=== PATIENT | male | born 1975 | race Hispanic/Latino ===

== ENCOUNTER 2018-08-21 18:10 | Emergency (ER) | payer MEDICAID ==
[2018-08-21] MEDS: METOCLOPRAMIDE INJ 10MG/2ML VIAL (J2765) IV (20:25)
[2018-08-21] MEDS: KETOROLAC 30 MG/ML VIAL (J1885) IV (20:26)
[2018-08-21] MEDS: diphenhydrAMINE INJ 50MG/ML VIAL (J1200) IV (20:26)
[2018-08-21 20:33] LABS: BASO % 0.4 % (0.0-1.0); EOS # 0.4 10^3/uL (0.0-0.50); EOS % 3.6 % (0.0-3.0); HEMATOCRIT 40.3 % (42.0-52.0); HEMOGLOBIN 13.3 g/dl (13.5-17.5); IMMATURE GRANULOCYTE % 0.5 % (0-3.0); LYMPH # 2.3 10^3/uL (1.5-4.5); LYMPH % 22.5 % (24.0-44.0); MEAN CORPUSCULAR HEMOGLOBIN 29.4 pg (27.0-33.0); MONO # 0.8 10^3/uL (0.0-0.8); NEUTROPHILS # 6.7 10^3/uL (1.8-7.7); PLATELET COUNT, AUTOMATED 290 10^3/uL (150-450); RED BLOOD COUNT 4.53 10^6/uL (4.30-6.10); WHITE BLOOD COUNT 10.4 10^3/uL (4.0-10.0)
[2018-08-21 20:41] LABS: ANION GAP 8 MEQ/L (8-16); BLOOD UREA NITROGEN 15 MG/DL (7-18); CALCIUM LEVEL 8.4 MG/DL (8.5-10.1); CARBON DIOXIDE LEVEL 25 MEQ/L (21-32); CHLORIDE LEVEL 108 MEQ/L (98-107); CREATININE FOR GFR 1.01 MG/DL (0.70-1.30); GLOMERULAR FILTRATION RATE > 60.0 (>60); GLUCOSE, FASTING 86 MG/DL (70-100); MAGNESIUM LEVEL 2.1 MG/DL (1.8-2.4); POTASSIUM SERUM 4.3 MEQ/L (3.5-5.1); SODIUM LEVEL 141 MEQ/L (136-145)
[2018-08-21 21:10] LABS: ERYTHROCYTE SEDIMENTATION RATE 46 mm/hr (0-15)
[2018-08-21] MEDS ORDERED: ISOVUE-370 76% 100ML VIAL (Q9967) As Ordered (22:12)
[2018-08-22] MEDS: methylPREDNISolone INJ 125 MG/2 ML VIAL (J2930) IV (02:31)
== END 2018-08-22 02:46 | disposition home or self-care (01) ==
LOC: M ED 08-22 02:46
DX: R51 Headache (principal); H53.2 Diplopia; I10 Essential (primary) hypertension; M54.9 Dorsalgia, unspecified; Z86.69 Personal history of other diseases of the nervous system and sense organs; Z79.899 Other long term (current) drug therapy
CPT/HCPCS: J1200

== ENCOUNTER → 2019-05-19 | Outpatient (REF) | payer MEDICAID, OTHER ==
[~2019-05-19] MED LIST: IRBE150T14 PO; LISI-1046 PO; NAPR-837 PO; REGL10TA6 PO
[2019-05-19 18:35] LABS: ALBUMIN 3.5 GM/DL (3.2-5.2); ALT/SGPT 52 U/L (12-78); BILIRUBIN,TOTAL 0.7 MG/DL (0.2-1.0); BLOOD UREA NITROGEN 14 MG/DL (7-18); CALCIUM LEVEL 8.3 MG/DL (8.5-10.1); CARBON DIOXIDE LEVEL 27 MEQ/L (21-32); CHLORIDE LEVEL 105 MEQ/L (98-107); CHOLESTEROL LEVEL 221 MG/DL (<200); CHOLESTEROL RISK RATIO 4.804 (<5); CREATININE FOR GFR 1.01 MG/DL (0.70-1.30); FREE T4 1.05 NG/DL (0.76-1.46); GLOMERULAR FILTRATION RATE > 60.0 (>60); GLUCOSE, FASTING 102 MG/DL (70-100); HDL CHOLESTEROL 46 MG/DL (>40); LDL CHOLESTEROL 155 MG/DL (<100); NON-HDL-C 175 MG/DL; POTASSIUM SERUM 4.3 MEQ/L (3.5-5.1); SODIUM LEVEL 139 MEQ/L (136-145); TOTAL PROTEIN 7.3 GM/DL (6.4-8.2); TRIGLYCERIDES LEVEL 101 MG/DL (<150)
[2019-05-19 18:38] LABS: TOTAL 25(OH) VITAMIN D 19.6 NG/ML (30.0-100.0)
[2019-05-19 18:44] LABS: BASO % 0.7 % (0.0-1.0); EOS # 0.2 10^3/uL (0.0-0.50); EOS % 2.8 % (0.0-3.0); HEMATOCRIT 40.7 % (42.0-52.0); HEMOGLOBIN 12.8 g/dl (13.5-17.5); LYMPH # 1.4 10^3/uL (1.5-4.5); LYMPH % 23.9 % (24.0-44.0); MEAN CORPUSCULAR HEMOGLOBIN 28.4 pg (27.0-33.0); MEAN CORPUSCULAR HGB CONC 31.4 g/dl (32.0-36.5); MEAN CORPUSCULAR VOLUME 90.4 fl (80.0-96.0); MONO # 0.4 10^3/uL (0.0-0.8); MONO % 6.9 % (0.0-5.0); NEUTROPHILS # 3.9 10^3/uL (1.8-7.7); NEUTROPHILS % 65.4 % (36.0-66.0); PLATELET COUNT, AUTOMATED 321 10^3/uL (150-450)
[2019-05-19 20:10] LABS: HEMOGLOBIN A1c 6.5 %
[2019-05-22 00:07] LABS: Lyme Disease IgG/IgM Antibodie <0.91 ISR (0.00-0.90); Lyme Disease IgM Ab Quantitati <0.80 index (0.00-0.79)
== END ==
LOC: M LAB REF 16:21
PROVIDERS: ATTEND Family Medicine
DX: I10 Essential (primary) hypertension (principal); Z13.228 Encounter for screening for other metabolic disorders

== ENCOUNTER 2019-05-23 07:52 | Outpatient (RCR) | payer OTHER, MEDICAID | END 2019-05-25 | LOC: M PT 07:52 | PROVIDERS: ATTEND Physician Assistant | DX: M50.30 Other cervical disc degeneration, unspecified cervical region (principal); M75.42 Impingement syndrome of left shoulder ==

== ENCOUNTER 2019-06-05 07:54 | Outpatient (RCR) | payer MEDICAID, SELFPAY | END 2019-06-25 | LOC: M PT 07:54 | PROVIDERS: ATTEND Physician Assistant | DX: Z47.89 Encounter for other orthopedic aftercare (principal); M50.30 Other cervical disc degeneration, unspecified cervical region; M75.42 Impingement syndrome of left shoulder; M19.012 Primary osteoarthritis, left shoulder ==

== ENCOUNTER → 2020-05-20 | Outpatient (REF) | payer SELFPAY ==
[~2020-05-20] MED LIST changes: -LISI-1046 PO; +LISI2.5T2 PO
== END ==
LOC: M LAB REF 17:49
PROVIDERS: ATTEND Physician Assistant
DX: K92.1 Melena (principal); Z12.5 Encounter for screening for malignant neoplasm of prostate; E55.9 Vitamin D deficiency, unspecified; E11.9 Type 2 diabetes mellitus without complications; R35.0 Frequency of micturition; I10 Essential (primary) hypertension

== ENCOUNTER → 2020-05-25 | Outpatient (REF) | payer SELFPAY ==
[2020-05-25 17:23] LABS: BASO # 0.1 10^3/uL (0.0-0.2); BASO % 0.6 % (0.0-1.0); EOS # 0.2 10^3/uL (0.0-0.5); EOS % 2.8 % (0.0-3.0); HEMATOCRIT 48.2 % (42.0-52.0); HEMOGLOBIN 15.7 g/dl (13.5-17.5); LYMPH # 1.6 10^3/uL (1.5-5.0); LYMPH % 19.9 % (24.0-44.0); MEAN CORPUSCULAR HEMOGLOBIN 28.6 pg (27.0-33.0); MEAN CORPUSCULAR HGB CONC 32.6 g/dl (32.0-36.5); MONO # 0.5 10^3/uL (0.0-0.8); MONO % 6.3 % (0.0-5.0); NEUTROPHILS # 5.7 10^3/uL (1.5-8.5); NEUTROPHILS % 69.8 % (36.0-66.0); PLATELET COUNT, AUTOMATED 329 10^3/uL (150-450); RED BLOOD COUNT 5.48 10^6/uL (4.30-6.10); WHITE BLOOD COUNT 8.2 10^3/uL (4.0-10.0)
[2020-05-25 17:35] LABS: ALBUMIN 3.8 GM/DL (3.2-5.2); ALT/SGPT 56 U/L (12-78); BILIRUBIN,TOTAL 1.2 MG/DL (0.2-1.0); BLOOD UREA NITROGEN 12 MG/DL (7-18); CALCIUM LEVEL 9.2 MG/DL (8.5-10.1); CARBON DIOXIDE LEVEL 26 MEQ/L (21-32); CHLORIDE LEVEL 103 MEQ/L (98-107); CHOLESTEROL LEVEL 291 MG/DL (<200); CHOLESTEROL RISK RATIO 5.596 (<5); CREATININE FOR GFR 1.06 MG/DL (0.70-1.30); FERRITIN 41 NG/ML (26-388); FREE T4 1.12 NG/DL (0.76-1.46); GLOMERULAR FILTRATION RATE > 60.0 (>60); GLUCOSE, FASTING 116 MG/DL (70-100); HDL CHOLESTEROL 52 MG/DL (>40); IRON (FE) 107 UG/DL (65-175); LDL CHOLESTEROL 199 MG/DL (<100); NON-HDL-C 239 MG/DL; POTASSIUM SERUM 4.3 MEQ/L (3.5-5.1); SODIUM LEVEL 139 MEQ/L (136-145); TRIGLYCERIDES LEVEL 198 MG/DL (<150)
[2020-05-25 17:37] LABS: TOTAL 25(OH) VITAMIN D 17.2 NG/ML (30.0-100.0)
[2020-05-25 17:57] LABS: HEMOGLOBIN A1c 6.7 %
[2020-05-25 18:29] LABS: MAU/CREAT RATIO 144.3 MCG/MG (0.0-30.0)
== END ==
LOC: M LAB REF 16:17
PROVIDERS: ATTEND Physician Assistant
DX: Z12.5 Encounter for screening for malignant neoplasm of prostate (principal); E55.9 Vitamin D deficiency, unspecified; E11.9 Type 2 diabetes mellitus without complications; K92.1 Melena; R35.0 Frequency of micturition; I10 Essential (primary) hypertension

== ENCOUNTER → 2020-11-02 | Outpatient (REF) | payer OTHER ==
[2020-11-02 11:51] LABS: HEMATOCRIT 42.8 % (42.0-52.0); HEMOGLOBIN 13.7 g/dl (13.5-17.5); MEAN CORPUSCULAR HEMOGLOBIN 28.4 pg (27.0-33.0); MEAN CORPUSCULAR VOLUME 88.6 fl (80.0-96.0); PLATELET COUNT, AUTOMATED 300 10^3/uL (150-450); RED BLOOD COUNT 4.83 10^6/uL (4.30-6.10); WHITE BLOOD COUNT 7.8 10^3/uL (4.0-10.0)
[2020-11-02 12:17] LABS: ALBUMIN 3.9 GM/DL (3.2-5.2); ALT/SGPT 48 U/L (12-78); BLOOD UREA NITROGEN 17 MG/DL (7-18); CALCIUM LEVEL 8.9 MG/DL (8.5-10.1); CARBON DIOXIDE LEVEL 28 MEQ/L (21-32); CHLORIDE LEVEL 106 MEQ/L (98-107); CHOLESTEROL LEVEL 235 MG/DL (<200); CHOLESTEROL RISK RATIO 4.272 (<5); CREATININE FOR GFR 1.12 MG/DL (0.70-1.30); GLOMERULAR FILTRATION RATE > 60.0 (>60); GLUCOSE, FASTING 123 MG/DL (70-100); HDL CHOLESTEROL 55 MG/DL (>40); LDL CHOLESTEROL 156 MG/DL (<100); NON-HDL-C 180 MG/DL; POTASSIUM SERUM 4.1 MEQ/L (3.5-5.1); SODIUM LEVEL 138 MEQ/L (136-145); TOTAL PROTEIN 7.4 GM/DL (6.4-8.2); TRIGLYCERIDES LEVEL 122 MG/DL (<150)
[2020-11-02 12:23] LABS: TOTAL 25(OH) VITAMIN D 17.4 NG/ML (30.0-100.0)
[2020-11-02 12:25] LABS: MAU/CREAT RATIO 53.9 MCG/MG (0.0-30.0)
[2020-11-02 12:26] LABS: HEMOGLOBIN A1c 6.6 %
== END ==
LOC: M LAB REF 11:01
PROVIDERS: ATTEND Physician Assistant
DX: E11.9 Type 2 diabetes mellitus without complications (principal); E78.2 Mixed hyperlipidemia; D64.9 Anemia, unspecified

== ENCOUNTER 2020-11-13 16:56 | Emergency (ER) | payer OTHER ==
[~2020-11-13] VITALS: Ht 180.3 cm; Wt 130.4 kg
[2020-11-13] MEDS ORDERED: NS 1,000 ML IV ONE (18:15)
[2020-11-13] MEDS ORDERED: KETOROLAC 30 MG/ML 1ML VIAL IV ONE (18:15)
[2020-11-13 18:21] LABS: BASO % 0.2 % (0.0-1.0); EOS # 0.2 10^3/uL (0.0-0.5); EOS % 5.3 % (0.0-3.0); HEMATOCRIT 44.3 % (42.0-52.0); LYMPH # 1.4 10^3/uL (1.5-5.0); LYMPH % 32.5 % (24.0-44.0); MEAN CORPUSCULAR HEMOGLOBIN 28.1 pg (27.0-33.0); MEAN CORPUSCULAR HGB CONC 31.6 g/dl (32.0-36.5); MEAN CORPUSCULAR VOLUME 88.8 fl (80.0-96.0); MONO # 0.6 10^3/uL (0.0-0.8); MONO % 13.7 % (0.0-5.0); NEUTROPHILS % 47.8 % (36.0-66.0); PLATELET COUNT, AUTOMATED 259 10^3/uL (150-450); RED BLOOD COUNT 4.99 10^6/uL (4.30-6.10); WHITE BLOOD COUNT 4.2 10^3/uL (4.0-10.0)
[2020-11-13] MEDS ORDERED: LISI-542 PO (18:34)
[2020-11-13] MEDS ORDERED: AMLO1TAB25 (18:34)
[2020-11-13] MEDS ORDERED: SIMV20TA22 (18:34)
--- NOTE | 2020-11-13 18:39 | REP ---
INDICATION: DYSPNEA/COUGH COMPARISON: None. TECHNIQUE: Portable AP view of the chest FINDINGS: The mediastinum and cardiac silhouette are stable and within normal limits for portable technique. The lung barber are clear without acute consolidation, effusion, or pneumothorax. Skeletal structures are intact. IMPRESSION: No acute cardiopulmonary process appreciated. <Electronically signed by Ashish Villa > 11/13/20 [id number]
[2020-11-13 18:52] LABS: ALBUMIN 3.4 GM/DL (3.2-5.2); ALT/SGPT 47 U/L (12-78); BILIRUBIN,DIRECT 0.1 MG/DL (0.0-0.2); BILIRUBIN,TOTAL 0.5 MG/DL (0.2-1.0); BLOOD UREA NITROGEN 11 MG/DL (7-18); CARBON DIOXIDE LEVEL 29 MEQ/L (21-32); CHLORIDE LEVEL 104 MEQ/L (98-107); CK-MB VALUE MASS 4.5 NG/ML (<3.6); CPK CREATINE PHOSPHOKINASE 327 U/L (39-308); CREATININE FOR GFR 0.92 MG/DL (0.70-1.30); FERRITIN 88 NG/ML (26-388); GLOMERULAR FILTRATION RATE > 60.0 (>60); GLUCOSE, FASTING 94 MG/DL (70-100); LDH LACTATE DEHYDROGENASE 198 U/L (87-241); MB/CK RELATIVE INDEX 1.38 (< OR =4); POTASSIUM SERUM 3.8 MEQ/L (3.5-5.1); SODIUM LEVEL 140 MEQ/L (136-145); TOTAL PROTEIN 7.2 GM/DL (6.4-8.2); TROPONIN I < 0.02 NG/ML (< 0.10)
[2020-11-13] MEDS ORDERED: METHOCARBAMOL 1,000 MG/10 ML VIAL (J2800) IV ONE (19:15)
[2020-11-13 19:24] LABS: C REACTIVE PROTEIN QUANTITATIV 0.76 MG/DL (0.00-0.30)
[2020-11-13 21:32] VITALS: BP 166/99
[2020-11-13] MEDS ORDERED: ROBA750T4 PO (21:35)
== END 2020-11-13 22:03 | disposition home or self-care (01) ==
LOC: M ED 16:56
DX: U07.1 COVID-19 (principal); M54.5 Low back pain; I10 Essential (primary) hypertension; Z79.899 Other long term (current) drug therapy
CPT/HCPCS: 36415; 71045; 80048; 80076; 82550; 82553; 82728; 83605; 83615; 84443; 85025; 85379; 86140; 93041; 94760; 96361; 96374; 96375; 99285; J1885; J2800

== ENCOUNTER 2021-01-07 06:45 | Day surgery (SDC) | payer OTHER ==
[~2021-01-07] VITALS: Ht 180.3 cm; Wt 127.5 kg
[~2021-01-07 06:45] MED LIST changes: +AMLO1TAB25; +LISI-898 PO; +ROBA750T4 PO; +SIMV20TA22
--- OUTSIDE RECORDS SUMMARY | 2021-01-07 06:51 | CCD ---
Author Organization Unknown Address [address] [place] [address] Phone [phone] Care Team Providers Care Armored Car Messenger Name Role Phone Gualberto Davidson Unavailable Unavailable Allergies Code Code System Name Reaction Severity Status Onset 8210680 RxNorm Latex Active 03/17/2019 Medications Name Status Start Date Stop Date amlodipine 10 mg tablet Active Not avai lable amoxicillin 500 mg capsule TAKE 1 CAPSULE BY MOUTH EVERY 8 HOURS UNTIL GONE Active Not available lisinopril 5 mg tablet TAKE 1 TABLET BY MOUTH ONCE DAILY Active Not a vailable OneTouch Delica Plus Lancet 33 gauge Active Not available OneTouch Verio Meter Active Not availab le OneTouch Verio test strips Active Not a vailable simvastatin 20 mg tablet TAKE 1 TABLET BY MOUTH ONCE DAILY Active Not a vailable Problems Name Status Onset Date Source Hypertensive Disorder Active 03/17/2019 History Endocrine/metabolic Screening Active 03/17/2019 Hi story Finding of Neck Region Active 04/15/2019 History Pain of Left Shoulder Joint Active 04/15/2019 Hist ory Type 2 Diabetes Mellitus without Complication Active History Vitamin D Deficiency Active 05/20/2020 History Anemia Active 05/20/2020 History Melena Active 05/20/2020 History Increased Frequency of Urination Active 05/20/2020 History Screening for Malignant Neoplasm of Prostate Active History Procedure by Method Active 05/20/2020 History Mixed Hyperlipidemia Active 05/26/2020 History Simple Obesity Active 05/26/2020 History Body Mass Index 30+ - Obesity Active 05/26/2020 Hi story Patient Asked to Attend Active 05/26/2020 History Dental Caries on Smooth Surface Penetrating into Pulp Active 06/04/2020 History Procedures Notes: Double Hernia Surgery at age 5 or 6 Results Lab Results None recorded. Past Encounters 11/02/2020 Anemia; Mixed Hyperlipidemia; Type 2 Diabetes Mellitus without Complication; Vitamin D Deficiency Renae Andersen, [employer] [employer]-[facility]: [address] [place] [address], Ph. Social History None recorded. Vaccine List None recorded. Plan of Care Reminders Provider Appointments None recorded. Lab None recorded. Referral None recorded. Procedures None recorded. Surgeries None recorded. Imaging None recorded. Vitals 06/01/2020 Height Weight Blood Pressure 70 in 281 lbs 12.8 oz 132/85 mm[Hg] 05/26/2020 Height Weight Blood Pressure 70 in 275 lbs 130/102 mm[Hg] 05/20/2020 Height Weight Blood Pressure 70 in 279 lbs 9.6 oz (1) 171/109 mm[Hg] (2) 166/109 mm[Hg] (3) 164/109 mm[Hg] 04/15/2019 Height Weight Blood Pressure 70 in 282 lbs 123/82 mm[Hg] 03/17/2019 Height Weight Blood Pressure 70 in 292 lbs 2.08 oz (1) 145/98 mm[Hg] (2) 152/98 mm[Hg]
--- OUTSIDE RECORDS SUMMARY | 2021-01-07 06:51 | CCD ---
Author Organization Unknown Address [address] [place] [address] Phone [phone] Care Team Providers Care Clinical Support Specialist Name Role Phone Gualberto Davidson Unavailable Unavailable Allergies Code Code System Name Reaction Severity Status Onset 7500537 RxNorm Latex Active 03/17/2019 Medications Name Status Start Date Stop Date amlodipine 10 mg tablet TAKE 1 TABLET BY MOUTH ONCE DAILY Active Not a vailable amoxicillin 500 mg capsule TAKE 1 CAPSULE BY MOUTH EVERY 8 HOURS UNTIL GONE Completed 11/09/2020 cholecalciferol (vitamin D3) 50 mcg (2,0 00 unit) capsule TAKE 1 CAPSULE BY MOUTH ONCE DAILY Active Not available d3 50 mcg (2000 ut) caps Active Not av ailable hydrochlorothiazide 12.5 mg tablet Take 1 tablet every day by oral route. Active Not available lisinopril 5 mg tablet TAKE 1 TABLET BY MOUTH ONCE DAILY Active Not a vailable methocarbamol 750 mg tablet TAKE 1 TABLET BY MOUTH THREE TIMES DAILY Active Not available OneTouch Delica Plus Lancet 33 gauge Active Not available OneTouch Verio Meter Active Not availab le OneTouch Verio test strips Active Not a vailable peg-electrolyte solution 420 gram oral s olution DRINK THE LIQUID PER THE PRE PROCEDURE INSTRUCTIONS Active Not available [employer] COVID-19 Vaccine (PF) 30 mcg/0.3 mL IM suspension(EUA) ADMINISTER 0.3ML IN THE MUSCLE DIRECTED Active Not available simvastatin 20 mg tablet TAKE 1 TABLET BY MOUTH ONCE DAILY Active Not a vailable Problems Name Status Onset Date Source Hypertensive Disorder Active 03/17/2019 History Endocrine/metabolic Screening Unknown 03/17/2019 Hi story Finding of Neck Region Active 04/15/2019 History Pain of Left Shoulder Joint Active 04/15/2019 Hist ory Type 2 Diabetes Mellitus without Complication Active History Vitamin D Deficiency Active 05/20/2020 History Anemia Active 05/20/2020 History Melena Unknown 05/20/2020 History Increased Frequency of Urination Unknown 05/20/2020 History Screening for Malignant Neoplasm of Prostate Active History Procedure by Method Active 05/20/2020 History Clinical Finding Active 05/20/2020 History Mixed Hyperlipidemia Active 05/26/2020 History Simple Obesity Active 05/26/2020 History Body Mass Index 30+ - Obesity Active 05/26/2020 Hi story Patient Asked to Attend Active 05/26/2020 History Dental Caries on Smooth Surface Penetrating into Pulp Active 06/04/2020 History Venous Varices Active 08/03/2020 History Melena Active 11/09/2020 Procedures Notes: Double Hernia Surgery at age 5 or 6 Results Lab Results Date Name Specimen Result Interpretation Description Value Range Status Address 11/02/2020 Cbc Blood venous Normal White Blood Count 7.8 10 4.0-10.0 10 [facility]: [address] [place] [address] Blood venous Normal Red Blood Count 4.83 10 4.30- 6.10 10 [facility]: [address] [place] [address] Blood venous Normal Hemoglobin 13.7 g/dL 13.5-17. 5 g/dL [facility]: [address] [place] [address] Blood venous Normal Hematocrit 42.8 % 42.0-52.0 % [facility]: [address] [place] [address] Blood venous Normal Mean Corpuscular Volume 88.6 fL 80.0-96.0 fL [facility]: [address] [place] [address] Blood venous Normal Mean Corpuscular Hemoglob in 28.4 pg 27.0-33.0 pg [facility]: [address] [place] [address] Blood venous Normal Mean Corpuscular HGB Conc 32.0 g/dL 32.0-36.5 g/dL [facility]: [address] [place] [address] Blood venous Normal Red Cell Distribution Wid th 13.1 % 11.5-14.5 % [facility]: [address] [place] [address] Blood venous Normal Platelet Count, Automated 300 10 150-450 10 [facility]: [address] [place] [address] Blood venous Normal Nucleated Red Blood Cell % 0. 0 % 0-0 % [facility]: [address] [place] [address] 11/02/2020 CMP, Serum or Plasma Blood venous High Glu cose, Fasting 123 mg/dL 70-100 mg/dL [facility] nter: [address] [facility] Blood venous Normal Blood Urea Nitrogen 17 mg/dL 7-18 mg/dL [facility]: [address] [place] [address] Blood venous Normal Creatinine for GFR 1.12 mg/dL 0.70-1.30 mg/dL [facility]: [address] [place] [address] Blood venous Normal Glomerular Filtration Rate > 60.0 >60 [facility]: [address] [facility] Blood venous Normal Sodium Level 138 mEq/L 136-14 5 mEq/L [facility]: [address] [place] [address] Blood venous Normal Potassium Serum 4.1 mEq/L 3.5 -5.1 mEq/L [facility]: [address] [place] [address] Blood venous Normal Chloride Level 106 mEq/L 98-1 07 mEq/L [facility]: [address] [place] [address] Blood venous Normal Carbon Dioxide Level 28 mEq/L 21-32 mEq/L [facility]: [address] [facility] Blood venous Low Anion Gap 4 mEq/L 8-16 mEq/L [facility]: [address] [facility] Blood venous Normal Calcium Level 8.9 mg/dL 8.5-1 0.1 mg/dL [facility]: [address] [facility] Blood venous Normal AST/SGOT 20 U/L 7-37 U/L [facility]: [address] [facility] Blood venous Normal ALT/SGPT 48 U/L 12-78 U/L [facility]: [address] [facility] Blood venous Normal Alkaline Phosphatase 78 U/L 4 5-117 U/L [facility]: [address] [facility] Blood venous Normal Bilirubin,total 1.0 mg/dL 0.2 -1.0 mg/dL [facility]: [address] [facility] Blood venous Normal Total Protein 7.4 gm/dL 6.4-8 .2 gm/dL [facility]: [address] [place] [address] Blood venous Normal Albumin 3.9 gm/dL 3.2-5.2 gm/ dL [facility]: [address] [place] [address] Blood venous Normal Albumin/globulin Ratio 1.1 [facility]: [address] [place] [address] 11/02/2020 Lipid Panel, Blood Blood venous Normal Trigl ycerides Level 122 mg/dL <150 mg/dL [facility] nter: [address] [place] [address] Blood venous High Cholesterol Level 235 mg/dL < 200 mg/dL [facility]: [address] [place] [address] Blood venous Normal HDL Cholesterol 55 mg/dL >40 mg/dL [facility]: [address] [place] [address] Blood venous High LDL Cholesterol 156 mg/dL <10 0 mg/dL [facility]: [address] [place] [address] Blood venous Normal Non-hdl-c 180 mg/dL [facility]: [address] [place] [address] Blood venous Normal Cholesterol Risk Ratio 4.272 <5 [facility]: [address] [place] [address] 11/02/2020 Vitamin D, 25-Hydroxy, Total, Serum Low Total 25(Oh) Vitamin D 17.4 NG/mL 30.0-100.0 NG/mL [facility] nter: [address] [place] [address] 11/02/2020 Microalbumin, Urine Urine Normal Creatinine, Urin e 215.0 mg/dL [facility]: [address] [place] [address] Urine Normal Malb Urine Siemens 116.0 mg/L [facility]: [address] [place] [address] Urine High Daryl/creat Ratio 53.9 mcg/mg 0.0-30.0 mcg/mg [facility]: [address] [place] [address] 11/02/2020 HbA1C (Hemoglobin a1C), Blood Normal Hemogl obin a1C 6.6 % [facility]: [address] [place] [address] High Estimated Average Glucose 143 mg/dL 60-110 mg/dL [facility]: [address] [place] [address] Past Encounters 01/05/2021 Hypertensive Disorder; Obstructive Sleep Apnea of Adult; Type 2 Diabetes Mellitus without Complication; Edema of Lower Leg Arcadio Adair MD: [address] [facility] [address], [place] [address], Ph. 11/09/2020 Type 2 Diabetes Mellitus without Complication; Mixed Hyperlipidemia; Hypertensive Disorder; Vitamin D Deficiency; Melba Gualberto Davidson, [facility]-C: [address] [facility] [address], [place] [address], Ph. 11/02/2020 Anemia; Mixed Hyperlipidemia; Type 2 Diabetes Mellitus without Complication; Vitamin D Deficiency Renae Andersen [facility]: [address] [place] [address], Ph. Social History Tobacco Smoking Status Never Smoker Vaccine List None recorded. Plan of Care Reminders Provider Appointments None recorded. Lab None recorded. Referral None recorded. Procedures None recorded. Surgeries None recorded. Imaging None recorded. Vitals 01/05/2021 08:40AM ESTABLISHED [id number] Height Weight BMI Blood Pressure 70 in 287 lbs 16 oz 41.3 kg/m2 135/86 mm[Hg] 11/09/2020 08:50AM TELEHEALTH 20 Height 70 in 08/03/2020 Height Weight BMI Blood Pressure 70 in 277 lbs 6.4 oz 39.95 kg/m2 130/88 mm[Hg ] 06/01/2020 Height Weight BMI Blood Pressure 70 in 281 lbs 12.8 oz 40.58 kg/m2 132/85 mm[H g] 05/26/2020 Height Weight BMI Blood Pressure 70 in 275 lbs 39.60 kg/m2 130/102 mm[Hg] 05/20/2020 Height Weight BMI Blood Pressure 70 in 279 lbs 9.6 oz 40.26 kg/m2 (1) 171/109 mm[Hg] (2) 166/109 mm[Hg] (3) 164/109 mm[Hg] 04/15/2019 Height Weight BMI Blood Pressure 70 in 282 lbs 40.61 kg/m2 123/82 mm[Hg] 03/17/2019 Height Weight BMI Blood Pressure 70 in 292 lbs 2.08 oz 42.07 kg/m2 (1) 145/98 mm[Hg] (2) 152/98 mm[Hg]
--- OUTSIDE RECORDS SUMMARY | 2021-01-07 06:51 | CCD ---
Author Organization Unknown Address [address] [place] [address] Phone [phone] Care Team Providers Care [employer] Name Role Phone Gualberto Davidson Unavailable Unavailable Allergies Code Code System Name Reaction Severity Status Onset 0610248 RxNorm Latex Active 03/17/2019 Medications Name Status Start Date Stop Date amlodipine 10 mg tablet Active Not avai lable amoxicillin 500 mg capsule TAKE 1 CAPSULE BY MOUTH EVERY 8 HOURS UNTIL GONE Completed 11/09/2020 lisinopril 5 mg tablet TAKE 1 TABLET BY MOUTH ONCE DAILY Active Not a vailable OneTouch Delica Plus Lancet 33 gauge Active Not available OneTouch Verio Meter Active Not availab le OneTouch Verio test strips Active Not a vailable simvastatin 20 mg tablet TAKE 1 TABLET BY MOUTH ONCE DAILY Active Not a vailable Vitamin D3 50 mcg (2,000 unit) capsule Take 1 capsule every day by oral route. Active Not available Problems Name Status Onset Date Source Hypertensive [...] Surface Penetrating into Pulp Active 06/04/2020 History Melena Active 11/09/2020 Procedures Notes: Double Hernia Surgery at age 5 or 6 Results Lab Results Date Name Specimen Result Interpretation Description Value Range Status Address 11/02/2020 Cbc Blood venous Normal White Blood Count 7.8 10 4.0-10.0 10 [facility]: [address] [place] [address] Blood venous Normal Red Blood Count 4.83 10 4.30- 6.10 10 [facility]: [address] [place] [address] Blood venous Normal Hemoglobin 13.7 g/dL 13.5-17. 5 g/dL [facility]: [address] [place] [address] Blood venous Normal Hematocrit 42.8 % 42.0-52.0 % [facility]: [address] [place] [address] Blood venous Normal Mean Corpuscular Volume 88.6 fL 80.0-96.0 fL [facility]: [address] [place] [address] Blood venous Normal Mean Corpuscular Hemoglob in 28.4 pg 27.0-33.0 pg [facility]: [address] [place] [address] Blood venous Normal Mean Corpuscular HGB Conc 32.0 g/dL 32.0-36.5 g/dL [facility]: [address] [place] [address] Blood venous Normal Red Cell Distribution Wid th 13.1 % 11.5-14.5 % [facility]: [address] [place] [address] Blood venous Normal Platelet Count, Automated 300 10 150-450 10 [facility]: [address] [place] [address] Blood venous Normal Nucleated Red Blood Cell % 0. 0 % 0-0 % [facility]: [address] [place] [address] 11/02/2020 CMP, Serum or Plasma Blood venous High Glu cose, Fasting 123 mg/dL 70-100 mg/dL [facility] nter: [address] [place] [address] Blood venous Normal Blood Urea Nitrogen 17 mg/dL 7-18 mg/dL [facility]: [address] [place] [address] Blood venous Normal Creatinine for GFR 1.12 mg/dL 0.70-1.30 mg/dL [facility]: [address] [place] [address] Blood venous Normal Glomerular Filtration Rate > 60.0 >60 [facility]: [address] [place] [address] Blood venous Normal Sodium Level 138 mEq/L 136-14 5 mEq/L [facility]: [address] [facility] Blood venous Normal Potassium Serum 4.1 mEq/L 3.5 -5.1 mEq/L [facility]: [address] [facility] Blood venous Normal Chloride Level 106 mEq/L 98-1 07 mEq/L [facility]: [address] [facility] Blood venous Normal Carbon Dioxide Level 28 mEq/L 21-32 mEq/L [facility]: [address] [facility] Blood venous Low Anion Gap 4 mEq/L 8-16 mEq/L [facility]: [address] [facility] Blood venous Normal Calcium Level 8.9 mg/dL 8.5-1 0.1 mg/dL [facility]: [address] [facility] Blood venous Normal AST/SGOT 20 U/L 7-37 U/L [facility]: [address] [place] [address] Blood venous Normal ALT/SGPT 48 U/L 12-78 U/L [facility]: [address] [facility] Blood venous Normal Alkaline Phosphatase 78 U/L 4 5-117 U/L [facility]: 0 [facility] Blood venous Normal Bilirubin,total 1.0 mg/dL 0.2 -1.0 mg/dL [facility]: [address] [place] [address] Blood venous Normal Total Protein 7.4 gm/dL 6.4-8 .2 gm/dL [facility]: [address] [place] [address] Blood venous Normal Albumin 3.9 gm/dL 3.2-5.2 gm/ dL [facility]: [address] [place] [address] Blood venous Normal Albumin/globulin Ratio 1.1 [facility]: [address] [place] [address] 11/02/2020 Lipid Panel, Blood Blood venous Normal Trigl ycerides Level 122 mg/dL <150 mg/dL [facility] nter: [address] [facility] Blood venous High Cholesterol Level 235 mg/dL < 200 mg/dL [facility]: [address] [place] [address] Blood venous Normal HDL Cholesterol 55 mg/dL >40 mg/dL [facility]: [address] [place] [address] Blood venous High LDL Cholesterol 156 mg/dL <10 0 mg/dL [facility]: [address] [place] [address] Blood venous Normal Non-hdl-c 180 mg/dL [facility]: [address] [facility] Blood venous Normal Cholesterol Risk Ratio 4.272 <5 [facility]: [address] [place] [address] 11/02/2020 Vitamin D, 25-Hydroxy, Total, Serum Low Total 25(Oh) Vitamin D 17.4 NG/mL 30.0-100.0 NG/mL [facility] nter: [address] [place] [address] 11/02/2020 Microalbumin, Urine Urine Normal Creatinine, Urin e 215.0 mg/dL [facility]: [address] [place] [address] Urine Normal Malb Urine Siemens 116.0 mg/L [facility]: [address] [place] [address] Urine High Daryl/creat Ratio 53.9 mcg/mg 0.0-30.0 mcg/mg [facility]: [address] [place] [address] 11/02/2020 HbA1C (Hemoglobin a1C), Blood Normal Hemogl obin a1C 6.6 % [facility]: [address] [place] [address] High Estimated Average Glucose 143 mg/dL 60-110 mg/dL [facility]: [address] [place] [address] Past Encounters 11/09/2020 Type 2 Diabetes Mellitus without Complication; Mixed Hyperlipidemia; Hypertensive Disorder; Vitamin D Deficiency; Melena Gualberto Davidson, R[facility]-C: [address] [facility] [address], Ph. 11/02/2020 Anemia; Mixed Hyperlipidemia; Type 2 Diabetes Mellitus without Complication; Vitamin D Deficiency [facility]-BC: [address] [place] [address], Ph. Social History Tobacco Smoking Status Never Smoker Vaccine List None recorded. Plan of Care Reminders Provider Appointments None recorded. Lab None recorded. Referral None recorded. Procedures None recorded. Surgeries None recorded. Imaging None recorded. Vitals 11/09/2020 08:50AM TELEHEALTH 20 Height 70 in 06/01/2020 Height Weight Blood Pressure 70 in [...]
--- OUTSIDE RECORDS SUMMARY | 2021-01-07 06:52 | CCD ---
Author Author [facility] Organization [facility] Address Unknown Phone Unavailable Care Team Providers Care Manager Of Drilling Name Role Phone CAM, CHERELLE GUALBERTO RPA-C Unavailable Unavailable CAM, CHERELLE GUALBEROT RPA-C Unavailable Unavailable CAM, CHERELLE GUALBERTO RPA-C Unavailable Unavailable CAM, CHERELLE GUALBERTO RPA-C Unavailable Unavailable CAM, CHERELLE GUALBERTO RPA-C Unavailable Unavailable CAM, CHERELLE GUALBERTO RPA-C Unavailable Unavailable CAM, CHERELLE GUALBERTO RPA-C Unavailable Unavailable CAM, CHERELLE GUALBERTO RPA-C Unavailable Unavailable CAM, CHERELLE GUALBERTO RPA-C Unavailable Unavailable CAM, CHERELLE GUALBERTO RPA-C Unavailable Unavailable CAM, CHERELLE GUALBERTO RPA-C Unavailable Unavailable CAM, CHERELLE GUALBERTO RPA-C Unavailable Unavailable CAM, CHERELLE GUALBERTO RPA-C Unavailable Unavailable CAM, CHERELLE GUALBERTO RPA-C Unavailable Unavailable CAM, CHERELLE GUALBERTO RPA-C Unavailable Unavailable CAM, CHERELLE GUALBERTO RPA-C Unavailable Unavailable CAM, CHERELLE GUALBERTO RPA-C Unavailable Unavailable CAM, CHERELLE GUALBERTO RPA-C Unavailable Unavailable CAM, CHERELLE GUALBERTO RPA-C Unavailable Unavailable CAM, CHERELLE GUALBERTO RPA-C Unavailable Unavailable CAM, CHERELLE GUALBERTO RPA-C Unavailable Unavailable CAM, CHERELLE GUALBERTO RPA-C Unavailable Unavailable CAM, CHERELLE GUALBERTO RPA-C Unavailable Unavailable CAM, CHERELLE GUALBERTO RPA-C Unavailable Unavailable CAM, CHERELLE GUALBERTO RPA-C Unavailable Unavailable CAM, CHERELLE GUALBERTO RPA-C Unavailable Unavailable CAM, CHERELLE GUALBERTO RPA-C Unavailable Unavailable CAM, CHERELLE GUALBERTO RPA-C Unavailable Unavailable CAM, CHERELLE GUALBERTO RPA-C Unavailable Unavailable CAM, CHERELLE GUALBERTO RPA-C Unavailable Unavailable CAM, CHERELLE GUALBERTO RPA-C Unavailable Unavailable CAM, CHERELLE GUALBERTO RPA-C Unavailable Unavailable CAM, CHERELLE GUALBERTO RPA-C Unavailable Unavailable CAM, CHERELLE GUALBERTO RPA-C Unavailable Unavailable CAM, CHERELLE GUALBERTO RPA-C Unavailable Unavailable CAM, CHERELLE GUALBERTO RPA-C Unavailable Unavailable CAM, CHERELLE GUALBERTO RPA-C Unavailable Unavailable CAM, CHERELLE GUALBERTO RPA-C Unavailable Unavailable CAM, CHERELLE GUALBERTO RPA-C Unavailable Unavailable Justo Adair MD Unavailable Unavailable Justo Adair MD Unavailable Unavailable Justo Adair MD Unavailable Unavailable Justo Adair MD Unavailable Unavailable Justo Adair MD Unavailable Unavailable Justo Adair MD Unavailable Unavailable Justo Adair MD Unavailable Unavailable Justo Adair MD Unavailable Unavailable Justo Adair MD Unavailable Unavailable Justo Adair MD Unavailable Unavailable Justo Adair MD Unavailable Unavailable Justo Adair MD Unavailable Unavailable Justo Adair MD Unavailable Unavailable Justo Adair MD Unavailable Unavailable Justo Adair MD Unavailable Unavailable Justo Adair MD Unavailable Unavailable Justo Adair MD Unavailable Unavailable Justo Adair MD Unavailable Unavailable Justo Adair MD Unavailable Unavailable Justo Adair MD Unavailable Unavailable Justo Adair MD Unavailable Unavailable Justo Adair MD Unavailable Unavailable Justo Adair MD Unavailable Unavailable Justo Adair MD Unavailable Unavailable Justo Adair MD Unavailable Unavailable Justo Adair MD Unavailable Unavailable Justo Adair MD Unavailable Unavailable Justo Adair MD Unavailable Unavailable Justo Adair MD Unavailable Unavailable Justo Adair MD Unavailable Unavailable Justo Adair MD Unavailable Unavailable Justo Adair MD Unavailable Unavailable Justo Adair MD Unavailable Unavailable Justo Adair MD Unavailable Unavailable Justo Adair MD Unavailable Unavailable Justo Adair MD Unavailable Unavailable Justo Adair MD Unavailable Unavailable Justo Adair MD Unavailable Unavailable Justo Adair MD Unavailable Unavailable Justo Adair MD Unavailable Unavailable Justo Adair MD Unavailable Unavailable Justo Adair MD Unavailable Unavailable Justo Adair MD Unavailable Unavailable Justo Adair MD Unavailable Unavailable Justo Adair MD Unavailable Unavailable Justo Adair MD Unavailable Unavailable Justo Adair MD Unavailable Unavailable Justo Adair MD Unavailable Unavailable Adair, Justo Ervin MD Unavailable Unavailable Adair, Justo Ervin MD Unavailable Unavailable Adair, Justo Ervin MD Unavailable Unavailable Adair, Justo Ervin MD Unavailable Unavailable Adair, Justo Ervin MD Unavailable Unavailable Adair, Justo Ervin MD Unavailable Unavailable Adair, Justo Ervin MD Unavailable Unavailable Justo Adair MD Unavailable Unavailable Giovany, Justo Ervin MD Unavailable Unavailable Adair, Justo Ervin MD Unavailable Unavailable Adair, Justo Ervin MD Unavailable Unavailable Adair, Justo Ervin MD Unavailable Unavailable Adair, Justo Ervin MD Unavailable Unavailable Adair, Justo Ervin MD Unavailable Unavailable Adair, Justo Ervin MD Unavailable Unavailable Adair, Justo Ervin MD Unavailable Unavailable Adair, Justo Ervin MD Unavailable Unavailable Adair, Justo Ervin MD Unavailable Unavailable Adair, Justo Ervin MD Unavailable Unavailable Adair, Justo Ervin MD Unavailable Unavailable Adair, Justo Ervin MD Unavailable Unavailable Adair, Justo Ervin MD Unavailable Unavailable Adair, Justo Ervin MD Unavailable Unavailable Adair, Justo Ervin MD Unavailable Unavailable Adair, Justo Ervin MD Unavailable Unavailable Giovany, Justo Ervin MD Unavailable Unavailable Adair, Justo Ervin MD Unavailable Unavailable Adair, Justo Ervin MD Unavailable Unavailable Adair, Justo Ervin MD Unavailable Unavailable Adair, Justo Ervin MD Unavailable Unavailable Adair, Justo Ervin MD Unavailable Unavailable Adair, Justo Ervin MD Unavailable Unavailable Adair, Justo Ervin MD Unavailable Unavailable AdairJusto MD Unavailable Unavailable Justo Adair MD Unavailable Unavailable Aadir, Justo Ervin MD Unavailable Unavailable Adair, Justo Ervin MD Unavailable Unavailable Adair, Justo Ervin MD Unavailable Unavailable Adair, Justo Ervin MD Unavailable Unavailable Adair, Justo Ervin MD Unavailable Unavailable AdairJusto MD Unavailable Unavailable Ganesh, A Renae PROFESSOR OF PSYCHIATRY Unavailable Unavailable Ganesh, A Renae PROFESSOR OF PSYCHIATRY Unavailable Unavailable Ganesh, A Renae PROFESSOR OF PSYCHIATRY Unavailable Unavailable Ganesh, A Renae PROFESSOR OF PSYCHIATRY Unavailable Unavailable Ganesh, A Renae PROFESSOR OF PSYCHIATRY Unavailable Unavailable Ganesh, A Renae PROFESSOR OF PSYCHIATRY Unavailable Unavailable Ganesh, A Renae PROFESSOR OF PSYCHIATRY Unavailable Unavailable Ganesh, A Renae PROFESSOR OF PSYCHIATRY Unavailable Unavailable Ganesh, A Renae PROFESSOR OF PSYCHIATRY Unavailable Unavailable Ganesh, A Renae PROFESSOR OF PSYCHIATRY Unavailable Unavailable Ganesh, A Renae PROFESSOR OF PSYCHIATRY Unavailable Unavailable Ganesh, A Renae PROFESSOR OF PSYCHIATRY Unavailable Unavailable Ganesh, A Renae PROFESSOR OF PSYCHIATRY Unavailable Unavailable Ganesh, A Renae PROFESSOR OF PSYCHIATRY Unavailable Unavailable Ganesh, A Renae PROFESSOR OF PSYCHIATRY Unavailable Unavailable Ganesh, A Renae PROFESSOR OF PSYCHIATRY Unavailable Unavailable Ganesh, A Renae PROFESSOR OF PSYCHIATRY Unavailable Unavailable Ganesh, A Renae PROFESSOR OF PSYCHIATRY Unavailable Unavailable Ganesh, A Renae PROFESSOR OF PSYCHIATRY Unavailable Unavailable Ganesh, A Renae PROFESSOR OF PSYCHIATRY Unavailable Unavailable Ganesh, A Renae PROFESSOR OF PSYCHIATRY Unavailable Unavailable Ganesh, A Renae PROFESSOR OF PSYCHIATRY Unavailable Unavailable Ganesh, A Renae PROFESSOR OF PSYCHIATRY Unavailable Unavailable Ganesh, A Renae PROFESSOR OF PSYCHIATRY Unavailable Unavailable Ganesh, A Renae PROFESSOR OF PSYCHIATRY Unavailable Unavailable Ganesh, A Renae PROFESSOR OF PSYCHIATRY Unavailable Unavailable Ganesh, A Renae PROFESSOR OF PSYCHIATRY Unavailable Unavailable Ganesh, A Renae PROFESSOR OF PSYCHIATRY Unavailable Unavailable Ganesh, Renae PROFESSOR OF PSYCHIATRY PROFESSOR OF PSYCHIATRY Unavailable Unavailable CAM, CHERELLE GUALBERTO RPA-C Unavailable Unavailable CAM, CHERELLE GUALBERTO RPA-C Unavailable Unavailable CAM, CHERELLE GUALBERTO RPA-C Unavailable Unavailable CAM, CHERELLE GUALBERTO RPA-C Unavailable Unavailable CAM, CHERELLE GUALBERTO RPA-C Unavailable Unavailable CAM, CHERELLE GUALBERTO RPA-C Unavailable Unavailable CAM, CHERELLE GUALBERTO RPA-C Unavailable Unavailable CAM, CHERELLE GUALBERTO RPA-C Unavailable Unavailable CAM, CHERELLE GUALBERTO RPA-C Unavailable Unavailable CAM, CHERELLE GUALBERTO RPA-C Unavailable Unavailable CAM, CHERELLE GUALBERTO RPA-C Unavailable Unavailable CAM, CHERELLE GUALBERTO RPA-C Unavailable Unavailable CAM, CHERELLE GUALBERTO RPA-C Unavailable Unavailable CAM, CHERELLE GUALBERTO RPA-C Unavailable Unavailable CAM, CHERELLE GUALBERTO RPA-C Unavailable Unavailable CAM, CHERELLE GUALBERTO RPA-C Unavailable Unavailable CAM, CHERELLE GUALBERTO RPA-C Unavailable Unavailable CAM, CHERELLE GUALBERTO RPA-C Unavailable Unavailable CAM, CHERELLE GUALBERTO RPA-C Unavailable Unavailable CAM, CHERELLE GUALBERTO RPA-C Unavailable Unavailable CAM, CHERELLE GUALBERTO RPA-C Unavailable Unavailable CAM, CHERELLE GUALBERTO RPA-C Unavailable Unavailable CAM, CHERELLE GUALBERTO RPA-C Unavailable Unavailable CAM, CHERELLE GUALBERTO RPA-C Unavailable Unavailable CAM, CHERELLE GUALBERTO RPA-C Unavailable Unavailable CAM, CHERELLE GUALBERTO RPA-C Unavailable Unavailable CAM, CHERELLE GUALBERTO RPA-C Unavailable Unavailable CAM, CHERELLE GUALBERTO RPA-C Unavailable Unavailable CAM, CHERELLE GUALBERTO RPA-C Unavailable Unavailable CAM, CHERELLE GUALBERTO RPA-C Unavailable Unavailable CAM, CHERELLE GUALBERTO RPA-C Unavailable Unavailable CAM, CHERELLE GUALBERTO RPA-C Unavailable Unavailable CAM, CHERELLE GUALBERTO RPA-C Unavailable Unavailable CAM, CHERELLE GUALBERTO RPA-C Unavailable Unavailable CAM, CHERELLE GUALBERTO RPA-C Unavailable Unavailable CAM, CHERELLE GUALBERTO RPA-C Unavailable Unavailable CAM, CHERELLE GUALBERTO RPA-C Unavailable Unavailable CAM, CHERELLE GUALBERTO RPA-C Unavailable Unavailable CAM, CHERELLE GUALBERTO RPA-C Unavailable Unavailable Ganesh, A Renae PROFESSOR OF PSYCHIATRY Unavailable Unavailable Ganesh, A Renae PROFESSOR OF PSYCHIATRY Unavailable Unavailable Ganesh, A Renae PROFESSOR OF PSYCHIATRY Unavailable Unavailable Ganesh, A Renae PROFESSOR OF PSYCHIATRY Unavailable Unavailable Ganesh, A Renae PROFESSOR OF PSYCHIATRY Unavailable Unavailable Ganesh, A Renae PROFESSOR OF PSYCHIATRY Unavailable Unavailable Ganesh, A Renae PROFESSOR OF PSYCHIATRY Unavailable Unavailable Ganesh, A Renae PROFESSOR OF PSYCHIATRY Unavailable Unavailable Ganesh, A Renae PROFESSOR OF PSYCHIATRY Unavailable Unavailable Ganesh, A Renae PROFESSOR OF PSYCHIATRY Unavailable Unavailable Ganesh, A Renae PROFESSOR OF PSYCHIATRY Unavailable Unavailable Ganesh, A Renae PROFESSOR OF PSYCHIATRY Unavailable Unavailable Ganesh, A Renae PROFESSOR OF PSYCHIATRY Unavailable Unavailable Ganesh, A Renae PROFESSOR OF PSYCHIATRY Unavailable Unavailable Ganesh, A Renae PROFESSOR OF PSYCHIATRY Unavailable Unavailable Ganesh, A Renae PROFESSOR OF PSYCHIATRY Unavailable Unavailable Gaensh, A Renae PROFESSOR OF PSYCHIATRY Unavailable Unavailable Ganesh, A Renae PROFESSOR OF PSYCHIATRY Unavailable Unavailable Ganesh, A Renae PROFESSOR OF PSYCHIATRY Unavailable Unavailable Ganesh, A Renae PROFESSOR OF PSYCHIATRY Unavailable Unavailable Ganesh, A Renae PROFESSOR OF PSYCHIATRY Unavailable Unavailable Ganesh, A Renae PROFESSOR OF PSYCHIATRY Unavailable Unavailable Ganesh, A Renae PROFESSOR OF PSYCHIATRY Unavailable Unavailable Ganesh, A Renae PROFESSOR OF PSYCHIATRY Unavailable Unavailable Ganesh, A Renae PROFESSOR OF PSYCHIATRY Unavailable Unavailable Ganesh, A Renae PROFESSOR OF PSYCHIATRY Unavailable Unavailable Ganesh, A Renae PROFESSOR OF PSYCHIATRY Unavailable Unavailable Ganesh, A Renae PROFESSOR OF PSYCHIATRY Unavailable Unavailable [facility], [facility] GUALBERTO Unavailable Unavailable Re-disclosure Warning The records that you are about to access may contain information from federally-assisted alcohol or drug abuse programs. If such information is present, then the following federally mandated warning applies: This information has been disclosed to you from records protected by federal confidentiality rules (42 CFR part 2). The federal rules prohibit you from making any further disclosure of this information unless further disclosure is expressly permitted by the written consent of the person to whom it pertains or as otherwise permitted by 42 CFR part 2. A general authorization for the release of medical or other information is NOT sufficient for this purpose. The Federal rules restrict any use of the information to criminally investigate or prosecute any alcohol or drug abuse patient.The records that you are about to access may contain highly sensitive health information, the redisclosure of which is protected by Article 27-F of the [place] Public Health law. If you continue you may have access to information: Regarding HIV / AIDS; Provided by facilities licensed or operated by the [facility] Office of Mental Health; or Provided by the [facility] Office for People With Developmental Disabilities. If such information is present, then the following [employer] [facility] mandated warning applies: This information has been disclosed to you from confidential records which are protected by state law. State law prohibits you from making any further disclosure of this information without the specific written consent of the person to whom it pertains, or as otherwise permitted by law. Any unauthorized further disclosure in violation of state law may result in a fine or [place] [facility] sentence or both. A general authorization for the release of medical or other information is NOT sufficient authorization for further disc losure. Family History Family Member Name Family Member Gender Family Member Status Date o f Status Description Data Source(s) Unknown Male Problem [facility] ([facility]) Encounters Encounter Providers Location Date Indications Data Source(s ) Arcadio Adair MD: [address], [address], [place] [address], Ph. Attender: Arcadio Adair MD [facility] Medical 01/05/2021 12:00:00 AM EST [place] ([facility]) KARIN Paiz: [address], [place] [address], Ph. Attender: GUALBERTO FRAZIER [facility] Medical 11/09/2020 12:00:00 AM EST [place] ([facility]) KARIN Paiz: [address], [place] [address], Ph. Attender: GUALBERTO FRAZIER [facility] Medical 11/09/2020 12:00:00 AM EST [place] ([facility]) EILEEN Teague: [address], [place] [address], Ph. Attender: Renae Andersen [facility] Medical 11/02/2020 12:00:00 AM EST [place] ([facility]) Renae Andersen [facility]: [address], [place] [address], Ph. Attender: Renae Andersen [facility] Medical 11/02/2020 12:00:00 AM EST [place] ([facility]) Renae Andersen [facility]: [address], [place] [address], Ph. Attender: Renae Andersen [facility] Medical 11/02/2020 12:00:00 AM EST [place] ([facility]) Outpatient Attender: GALA LUA [facility] 12/2019 08:48:01 AM EDT [facility] Outpatient Attender: GUALBERTO CAM RPA-C [facility] 08/03/2020 09:12:00 AM EDT [facility] Outpatient Attender: GALA LUA [facility] 06/2020 09:11:01 AM EDT [facility] Outpatient Attender: GALA LUA MDJEN [facility] 06/2020 08:45:02 AM EDT [facility] Outpatient Attender: GUALBERTO CAM RPA-C [facility] 08/03/2020 08:45:01 AM EDT [facility] Outpatient Attender: GALA LUA [facility] 02/2020 09:31:03 AM EDT [facility] Outpatient Attender: GALA LUA [facility] 05/27 03:44:02 PM EDT [facility]: [facility] 01:40:01 PM EDT [facility] Outpatient Attender: GALA LUA [facility] 05/26 01:39:02 PM EDT [facility] Outpatient Attender: GUALBERTO FRAZIER [facility] 06/04/2020 12:56:03 PM EDT [facility] Outpatient Attender: GALA CAM JUSTINA GUALBERTO [facility] 05/26 12:55:01 PM EDT [facility] Outpatient Attender: GALA TUTU LUA [facility] 05/26 12:49:59 PM EDT [facility] Outpatient Attender: GALA TUTU HORN GUALBERTO [facility] 11/2019 04:11:03 PM EDT [facility] Outpatient Attender: GUALBERTO FRAZIER [facility] 05/26/2020 04:11:01 PM EDT [facility] Outpatient Attender: GALA TUTU LUA [facility] 11/2019 10:04:04 AM EDT [facility] Outpatient Attender: GUALBERTO FRAZIER [facility] 05/26/2020 10:04:03 AM EDT [facility] Outpatient Attender: GUALBERTO FRAZIER [facility] 05/26/2020 10:02:02 AM EDT [facility] Outpatient Attender: GALA LUA [facility] 11/2019 09:11:02 AM EDT [facility] Outpatient Attender: GUALBERTO FRAZIER [facility] 05/26/2020 09:11:02 AM EDT [facility] Outpatient Attender: GALA TUTU LUA [facility] 04/28 12:13:02 PM EDT [facility] Outpatient Attender: MONICA ANDERSON 05/20/2020 04:28:01 P M EDT [facility] Outpatient Attender: MONICA ANDERSON 05/20/2020 03:34:01 P M EDT [facility] Outpatient Attender: MONICA ANDERSON 05/17/2020 02:59:00 P M EDT [facility] Outpatient Attender: Renae ANDERSON 04/15/2020 08:4 3:46 AM EDT [facility] Outpatient Attender: MONICA ANDERSON 02/16/2020 09:01:09 P M EDT [facility] Medications Medication Brand Name Start Date Product Form Dose Route Admi nistrative Instructions Pharmacy Instructions Status Indications Reaction Description Data Source(s) Amoxicillin 500 MG Oral Capsule amoxicil tammy 500 mg capsule TAKE 1 CAPSULE BY MOUTH EVERY 8 HOURS UNTIL GONE amoxicillin 500 mg capsule TAKE 1 CAPSUL E BY MOUTH EVERY 8 HOURS UNTIL GONE complet ed amoxicillin 500 MG Oral Capsule [place] ([facility]) Amoxicillin 500 MG Oral Capsule amoxicil tammy 500 mg capsule TAKE 1 CAPSULE BY MOUTH EVERY 8 HOURS UNTIL GONE amoxicillin 500 mg capsule TAKE 1 CAPSUL E BY MOUTH EVERY 8 HOURS UNTIL GONE complet ed amoxicillin 500 MG Oral Capsule [place] ([facility]) Insurance Providers Payer name Policy type / Coverage type Policy ID Covered democrat ID Covered democrat's relationship to dunaway Policy Dunaway Plan Information [facility] [id number] SP [id number] [facility] O [id number] S [id number] [facility] COMM[facility] [id number] SP [id number] SELF PAY ONLY [id number] SP [id number] Self Pay P UNAVAILABLE S UNA[place]ILA BLE MEDICAID [id number] SP [id number] SEIU [id number] SP [id number] MEDICAID [id number] SP [id number] Medicaid P [id number] S [id number] Medicaid [id number] Self [id number] Medicaid P [id number] S [id number] SIEU BENEFIT FUND O [id number] S [id number] MEDICAID M [id number] Problems, Conditions, and Diagnoses Code Display Name Description Problem Type Effective Dates Data Source(s) 4261873 Melena Melena Problem 11/09/2020 12:00:00 AM LEXI ELDRIDGE ([facility]) [id number] Melena Melena Problem 11/09/2020 12:00:00 AM LEXI ELDRIDGE ([facility]) [id number] Essential hypertension Essential hypertension Problem 11/08/2020 12:00:00 AM BASHIR CAVAZOS ([facility], ) 454.9 Asymptomatic varicose veins of bilateral lower extremities Asymptomatic varicose veins of bilateral lower extremities 08/03/2020 09: 10:51 AM EDT [facility] [id number] Venous varices Venous Varices Problem 08/03/2020 12:00: 00 AM EDT [place] ([facility]) 521.03 DENTAL CARIES EXTENDING INTO PULP DENTAL CARIES EXTEND ING INTO PULP 06/04/2020 12:54:07 PM EDT [facility] [id number] Dental caries on smooth surface penetrat ing into pulp Dental Caries on Smooth Surface Penetrating into Pulp Problem 12:00:00 AM EDT [place] ([facility]) [id number] Dental caries on smooth surface penetrat ing into pulp Dental Caries on Smooth Surface Penetrating into Pulp Problem 12:00:00 AM EDT [place] ([facility]) [id number] Dental caries on smooth surface penetrat ing into pulp Dental Caries on Smooth Surface Penetrating into Pulp Problem 12:00:00 AM EDT [place] ([facility]) V65.8 Person consulting for explanation of exa mination or test findings Person consulting for explanation of examination or test findings 05/26/2020 10:01:39 AM EDT [facility] 272.2 Mixed hyperlipidemia Mixed hyperlipidemia 05/26 10:01:39 AM EDT [facility] V85.39 BMI 39.0-39.9 BMI 39.0-39.9 05/26/2020 10:01:39 AM EDT [facility] 278.00 Obesity Obesity 05/26/2020 10:01:39 AM ED T [facility] [id number] Patient asked to attend Patient Asked to Attend [facility] 05/26/2020 12:00:00 AM EDT [place] ([facility]) [id number] Body mass index 30+ - obesity Body Mass Index 30+ - Ob esity Problem 05/26/2020 12:00:00 AM EDT [place] ([facility]) 201721756 Simple obesity Simple Obesity Problem 05/26/2020 12:00: 00 AM EDT [place] ([facility]) [id number] Mixed hyperlipidemia Mixed Hyperlipidemia Problem 05/26/2020 12:00:00 AM EDT [place] ([facility]) 955718189 Patient asked to attend Patient Asked to Attend [facility] 05/26/2020 12:00:00 AM EDT [place] ([facility]) 159212732 Body mass index 30+ - obesity Body Mass Index 30+ - Ob esity Problem 05/26/2020 12:00:00 AM EDT [place] ([facility]) 260847070 Simple obesity Simple Obesity Problem 05/26/2020 12:00: 00 AM EDT [place] ([facility]) [id number] Mixed hyperlipidemia Mixed Hyperlipidemia Problem 05/26/2020 12:00:00 AM EDT [place] ([facility]) 561843816 Patient asked to attend Patient Asked to Attend Proble m 05/26/2020 12:00:00 AM EDT [place] ([facility]) 515056623 Body mass index 30+ - obesity Body Mass Index 30+ - Ob esity Problem 05/26/2020 12:00:00 AM EDT [place] ([facility]) 389337587 Simple obesity Simple Obesity Problem 05/26/2020 12:00: 00 AM EDT [place] ([facility]) 772016844 Mixed hyperlipidemia Mixed Hyperlipidemia Problem 05/26/2020 12:00:00 AM EDT [place] ([facility]) V70.0 Encounter for general adult medical exam ination with abnormal findings Encounter for general adult medical examination with abnormal findings 05/20/2020 04:26:49 PM EDT [facility] [id number] Anemia, unspecified Anemia, unspecified 020 04:26:49 PM EDT [facility] V76.44 Encounter for screening for malignant ne oplasm of prostate Encounter for screening for malignant neoplasm of prostate 05/20/2020 04:2 6:49 PM EDT [facility] E55.9 Vitamin D deficiency, unspecified Vitamin D deficiency , unspecified 05/20/2020 04:26:49 PM EDT [facility] [id number] Type 2 diabetes mellitus without complic ations Type 2 diabetes mellitus without complications 05/20/2020 04:26:49 PM [facility] Hemat[facility] Hematochezia 05/20/2020 04:26:49 P M EDT [facility] 788.41 Increased frequency of urination Increased frequency o f urination 05/20/2020 04:26:49 PM EDT [facility] [id number] Clinical finding Clinical Finding Problem 05/20/2020 12 :00:00 AM EDT [facility] ([facility]) [id number] Procedure by method Procedure by Method Problem 0 05/20/2020 12:00:00 AM EDT [facility] ([facility]) [id number] Screening for malignant neoplasm of pros piper Screening for Malignant Neoplasm of Prostate Problem 05/20/2020 12:00:00 AM EDT [facility] ([facility]) 380537375 Increased frequency of urination Increased Frequ ency of Urination Problem 05/20/2020 12:00:00 AM EDT - 11/09/2020 12:00:00 AM LEXI ELDRIDGE ([facility]) [id number] Melena Melena Problem 05/20/2020 12:0 0:00 AM EDT - 11/09/2020 12:00:00 AM EST [facility] ([facility]) [id number] Anemia Anemia Problem 05/20/2020 12:00:00 AM ED Isidro ELDRIDGE ([facility]) 10797117 Vitamin D deficiency Vitamin D Deficiency Problem 05/20/2020 12:00:00 AM EDT [facility] ([facility]) 591901380 Type 2 diabetes mellitus without complic ation Type 2 Diabetes Mellitus without Complication Problem 05/20/2020 12:00:00 AM EDT [facility] ([facility]) [id number] Procedure by method Procedure by Method Problem 0 05/20/2020 12:00:00 AM EDT [facility] ([facility]) [id number] Screening for malignant neoplasm of pros piper Screening for Malignant Neoplasm of Prostate Problem 05/20/2020 12:00:00 AM EDT [facility] ([facility]) 361973578 Increased frequency of urination Increased Frequ ency of Urination Problem 05/20/2020 12:00:00 AM EDT - 11/09/2020 12:00:00 AM LEXI ELDRIDGE ([facility]) 3900570 Melena Melena Problem 05/20/2020 12:0 0:00 AM EDT - 11/09/2020 12:00:00 AM EST [facility] ([facility]) [id number] Anemia Anemia Problem 05/20/2020 12:00:00 AM ED T [facility] ([facility]) 98119115 Vitamin D deficiency Vitamin D Deficiency Problem 05/20/2020 12:00:00 AM EDT [facility] ([facility]) 041410661 Type 2 diabetes mellitus without complic ation Type 2 Diabetes Mellitus without Complication Problem 05/20/2020 12:00:00 AM EDT [facility] ([facility]) 563379616 Procedure by method Procedure by Method Problem 0 05/20/2020 12:00:00 AM EDT [facility] ([facility]) 944764769 Screening for malignant neoplasm of pros piper Screening for Malignant Neoplasm of Prostate Problem 05/20/2020 12:00:00 AM EDT [facility] ([facility]) 862702333 Increased frequency of urination Increased Frequ ency of Urination Problem 05/20/2020 12:00:00 AM EDT [facility] ([facility]) 4876016 Melena Melena Problem 05/20/2020 12:00:00 AM ED T [facility] ([facility]) [id number] Anemia Anemia Problem 05/20/2020 12:00:00 AM ED T [facility] ([facility]) 44522965 Vitamin D deficiency Vitamin D Deficiency Problem 05/20/2020 12:00:00 AM EDT [facility] ([facility]) 664604217 Type 2 diabetes mellitus without complic ation Type 2 Diabetes Mellitus without Complication Problem 05/20/2020 12:00:00 AM EDT [facility] ([facility]) 840080447 Endocrine/metabolic screening Endocrine/metabolic Scre ening Problem 03/17/2019 12:00:00 AM EDT - 11/09/2020 12:00:00 AM EST [facility] ([facility]) 990823694 Endocrine/metabolic screening Endocrine/metabolic Scre ening Problem 03/17/2019 12:00:00 AM EDT - 11/09/2020 12:00:00 AM EST [facility] ([facility]) Results ID Date Data Source [id number] 12/28/2020 12:00:00 AM EST [facility] Name Value Range Interpretation Code Description Data Carlota rce(s) Supporting Document(s) SARS-CoV2 Rapid Antigen Negative [facility] This lab was ordered by [facility] and reported by [facility]. ID Date Data Source [id number] 11/30/2020 12:00:00 AM EST [facility] Name Value Range Interpretation Code Description Data Carlota rce(s) Supporting Document(s) SARS-CoV2 Rapid Antigen Negative [facility] This lab was ordered by [facility] and reported by [facility]. ID Date Data Source [id number] 11/23/2020 07:29:00 AM EST [facility] Name Value Range Interpretation Code Description Data Carlota rce(s) Supporting Document(s) SARS coronavirus 2 RNA [facility] This lab was ordered by [facility] and reported by [facility]. ID Date Data Source [id number] 11/09/2020 06:04:00 AM EST [facility] Name Value Range Interpretation Code Description Data Carlota rce(s) Supporting Document(s) SARS coronavirus 2 RNA [facility] This lab was ordered by [facility] and reported by [facility]. ID Date Data Source [id number] 11/08/2020 12:00:00 AM EST [facility] Name Value Range Interpretation Code Description Data Carlota rce(s) Supporting Document(s) SARS-CoV2 Rapid Antigen [facility] This lab was ordered by [facility] and reported by [facility]. ID Date Data Source [id number] 11/02/2020 08:40:00 AM EST [facility]) Name Value Range Interpretation Code Description Data Carlota rce(s) Supporting Document(s) Hemoglobin A1c/Hemoglobin.total in Blood 6.6 % normal Hemoglobin a1C [facility] ([facility]) estimated average glucose 143 mg/dL 60-110 Above high norm al Estimated Average Glucose [facility]) ID Date Data Source [id number] 11/02/2020 08:40:00 AM EST [facility] ([facility]) Name Value Range Interpretation Code Description Data Carlota rce(s) Supporting Document(s) malb urine siemens 116.0 mg/L normal Malb Urine Siemen s [facility] ([facility]) daryl/creat ratio 53.9 mcg/mg 0.0-30.0 Above high normal Daryl/creat Ra otilia [facility] ([facility]) creatinine, urine 215.0 mg/dL normal Creatinine, Urine [facility] ([facility]) ID Date Data Source [id number] 11/02/2020 08:40:00 AM EST [facility] ([facility]) Name Value Range Interpretation Code Description Data Carlota rce(s) Supporting Document(s) total 25(oh) vitamin D 17.4 NG/mL 30.0-100.0 Below low normal T otal 25(Oh) Vitamin D [facility] ([facility]) ID Date Data Source [id number] 11/02/2020 08:40:00 AM EST [facility] ([facility]) Name Value Range Interpretation Code Description Data Carlota rce(s) Supporting Document(s) cholesterol level 235 mg/dL <200 Above high normal Cholesterol Level [facility] ([facility]) triglycerides level 122 mg/dL <150 normal Triglycerides Le sunshine [facility] ([facility]) HDL cholesterol 55 mg/dL >40 normal HDL Cholesterol [facility] NA ([facility]) cholesterol risk ratio <5 normal Cholesterol R isk Ratio [facility] ([facility]) non-HDL-C 180 mg/dL normal Non-hdl-c [facility] ([facility]) Cholesterol in LDL [Mass/volume] in Serum or Plasma 156 mg/dL <100 Above high normal LDL Cholesterol [facility] ([facility]) ID Date Data Source [id number] 11/02/2020 08:40:00 AM EST [facility] ([facility]) Name Value Range Interpretation Code Description Data Carlota rce(s) Supporting Document(s) glucose, fasting 123 mg/dL 70-100 Above high normal Glucose, Fas ting [facility] ([facility]) blood urea nitrogen 17 mg/dL 7-18 normal Blood Urea Nitro gen [facility] ([facility]) glomerular filtration rate > 60.0 >60 normal Glomerula r Filtration Rate [facility] ([facility]) creatinine for GFR 1.12 mg/dL 0.70-1.30 normal Creatinine for GF R [facility] ([facility]) carbon dioxide level 28 mEq/L 21-32 normal Carbon Dioxide Level [facility] ([facility]) chloride level 106 mEq/L 98-107 normal Chloride Level [facility] ([facility]) sodium level 138 mEq/L 136-145 normal Sodium Level [facility] (No [facility]) potassium serum 4.1 mEq/L 3.5-5.1 normal Potassium Serum [facility] ([facility]) calcium level 8.9 mg/dL 8.5-10.1 normal Calcium Level [facility] ( [facility]) AST/SGOT 20 U/L 7-37 normal AST/SGOT [facility] ([facility]) anion gap 4 mEq/L 8-16 Below low normal Anion Gap [facility] ( [facility]) ALT/SGPT 48 U/L 12-78 normal ALT/SGPT [facility] ([facility]) bilirubin,total 1.0 mg/dL 0.2-1.0 normal Bilirubin,total [facility] ([facility]) albumin 3.9 gm/dL 3.2-5.2 normal Albumin [facility] ([facility]) total protein 7.4 gm/dL 6.4-8.2 normal Total Protein [facility] ( [facility]) alkaline phosphatase 78 U/L 45-117 normal Alkaline Phosph atase [facility] ([facility]) albumin/globulin ratio normal Albumin/globu tammy Ratio [facility] ([facility]) ID Date Data Source [id number] 11/02/2020 08:40:00 AM EST [facility] ([facility]) Name Value Range Interpretation Code Description Data Carlota rce(s) Supporting Document(s) white blood count 7.8 10 4.0-10.0 normal White Blood Count [facility] ([facility]) hematocrit 42.8 % 42.0-52.0 normal Hematocrit [facility] ([facility]) hemoglobin 13.7 g/dL 13.5-17.5 normal Hemoglobin [facility] ([facility]) red blood count 4.83 10 4.30-6.10 normal Red Blood Count [facility] ([facility]) red cell distribution width 13.1 % 11.5-14.5 normal Red Cell Distribution Width [facility] ([facility]) mean corpuscular hemoglobin 28.4 pg 27.0-33.0 normal Mean Corpuscular Hemoglobin [facility] ([facility]) mean corpuscular volume 88.6 fL 80.0-96.0 normal Mean Corpusc ular Volume [facility] ([facility]) mean corpuscular HGB conc 32.0 g/dL 32.0-36.5 normal Mean Corpu scular HGB Conc [facility] ([facility]) platelet count, automated 300 10 150-450 normal Platelet C ount, Automated [facility] ([facility]) nucleated red blood cell % 0.0 % 0-0 normal Nucleated Red Blood Cell % [facility] ([facility]) ID Date Data Source [id number] 11/02/2020 08:40:00 AM EST [facility] ([facility]) Name Value Range Interpretation Code Description Data Carlota rce(s) Supporting Document(s) estimated average glucose 143 mg/dL 60-110 Above high norm al Estimated Average Glucose [facility] ([facility]) Hemoglobin A1c/Hemoglobin.total in Blood 6.6 % normal Hemoglobin a1C [facility] ([facility]) ID Date Data Source [id number] 11/02/2020 08:40:00 AM EST [facility] ([facility]) Name Value Range Interpretation Code Description Data Carlota rce(s) Supporting Document(s) creatinine, urine 215.0 mg/dL normal Creatinine, Urine [facility] ([facility]) malb urine siemens 116.0 mg/L normal Malb Urine Siemen s [facility] ([facility]) daryl/creat ratio 53.9 mcg/mg 0.0-30.0 Above high normal Daryl/creat Ra otilia [facility] ([facility]) ID Date Data Source [id number] 11/02/2020 08:40:00 AM EST [facility] ([facility]) Name Value Range Interpretation Code Description Data Carlota rce(s) Supporting Document(s) total 25(oh) vitamin D 17.4 NG/mL 30.0-100.0 Below low normal T otal 25(Oh) Vitamin D [facility] ([facility]) ID Date Data Source [id number] 11/02/2020 08:40:00 AM EST [facility] ([facility]) Name Value Range Interpretation Code Description Data Carlota rce(s) Supporting Document(s) triglycerides level 122 mg/dL <150 normal Triglycerides Le sunshine [facility] ([facility]) cholesterol level 235 mg/dL <200 Above high normal Cholesterol Level [facility] ([facility]) Cholesterol in LDL [Mass/volume] in Serum or Plasma 156 mg/dL <100 Above high normal LDL Cholesterol [facility] ([facility]) non-HDL-C 180 mg/dL normal Non-hdl-c [facility] ([facility]) HDL cholesterol 55 mg/dL >40 normal HDL Cholesterol [facility] ([facility]) cholesterol risk ratio <5 normal Cholesterol R isk Ratio [facility] ([facility]) ID Date Data Source [id number] 11/02/2020 08:40:00 AM EST [facility] ([facility]) Name Value Range Interpretation Code Description Data Carlota rce(s) Supporting Document(s) blood urea nitrogen 17 mg/dL 7-18 normal Blood Urea Nitro gen [facility] ([facility]) glucose, fasting 123 mg/dL 70-100 Above high normal Glucose, Fas ting [facility] ([facility]) glomerular filtration rate > 60.0 >60 normal Glomerula r Filtration Rate [facility] ([facility]) potassium serum 4.1 mEq/L 3.5-5.1 normal Potassium Serum [facility] NA ([facility]) sodium level 138 mEq/L 136-145 normal Sodium Level [facility] ([facility]) creatinine for GFR 1.12 mg/dL 0.70-1.30 normal Creatinine for GF R [facility] ([facility]) carbon dioxide level 28 mEq/L 21-32 normal Carbon Dioxide Level [facility] ([facility]) calcium level 8.9 mg/dL 8.5-10.1 normal Calcium Level [facility] ( [facility]) anion gap 4 mEq/L 8-16 Below low normal Anion Gap [facility] ( [facility]) chloride level 106 mEq/L 98-107 normal Chloride Level [facility] ([facility]) ALT/SGPT 48 U/L 12-78 normal ALT/SGPT [facility] ([facility]) alkaline phosphatase 78 U/L 45-117 normal Alkaline Phosph atase [facility] ([facility]) AST/SGOT 20 U/L 7-37 normal AST/SGOT [facility]) bilirubin,total 1.0 mg/dL 0.2-1.0 normal Bilirubin,total [facility] albumin 3.9 gm/dL 3.2-5.2 normal Albumin [facility] ([facility]) total protein 7.4 gm/dL 6.4-8.2 normal Total Protein [facility] ( [facility]) albumin/globulin ratio normal Albumin/globu tammy Ratio [facility] ([facility]) ID Date Data Source [id number] 11/02/2020 08:40:00 AM EST [facility] ([facility]) Name Value Range Interpretation Code Description Data Carlota rce(s) Supporting Document(s) white blood count 7.8 10 4.0-10.0 normal White Blood Count [facility] ([facility]) mean corpuscular volume 88.6 fL 80.0-96.0 normal Mean Corpusc ular Volume [facility] ([facility]) hematocrit 42.8 % 42.0-52.0 normal Hematocrit [facility] ([facility]) red blood count 4.83 10 4.30-6.10 normal Red Blood Count [facility] ([facility]) hemoglobin 13.7 g/dL 13.5-17.5 normal Hemoglobin [facility] ([facility]) platelet count, automated 300 10 150-450 normal Platelet C ount, Automated [facility] ([facility]) red cell distribution width 13.1 % 11.5-14.5 normal Red Cell Distribution Width [facility] ([facility]) mean corpuscular hemoglobin 28.4 pg 27.0-33.0 normal Mean Corpuscular Hemoglobin [facility] ([facility]) mean corpuscular HGB conc 32.0 g/dL 32.0-36.5 normal Mean Corpu scular HGB Conc [facility] ([facility]) nucleated red blood cell % 0.0 % 0-0 normal Nucleated Red Blood Cell % [facility] ([facility]) ID Date Data Source [id number] 11/02/2020 05:36:00 AM EST [facility] Name Value Range Interpretation Code Description Data Carlota rce(s) Supporting Document(s) SARS coronavirus 2 RNA [facility] This lab was ordered by [facility] and reported by [facility]. ID Date Data Source [id number] 10/26/2020 05:32:00 AM EST [facility] Name Value Range Interpretation Code Description Data Carlota rce(s) Supporting Document(s) SARS coronavirus 2 RNA [facility] This lab was ordered by [facility] and reported by [facility]. ID Date Data Source [id number] 10/20/2020 08:21:00 AM EST [facility] Name Value Range Interpretation Code Description Data Carlota rce(s) Supporting Document(s) SARS coronavirus 2 RNA [facility] This lab was ordered by [facility] and reported by [facility]. ID Date Data Source [id number] 10/12/2020 08:00:00 AM EST [facility] Name Value Range Interpretation Code Description Data Carlota rce(s) Supporting Document(s) SARS coronavirus 2 RNA [facility] This lab was ordered by [facility] and reported by [facility]. ID Date Data Source [id number] 10/05/2020 07:00:00 AM EST [facility] Name Value Range Interpretation Code Description Data Carlota rce(s) Supporting Document(s) SARS coronavirus 2 RNA [facility] This lab was ordered by [facility] and reported by [facility]. ID Date Data Source [id number] 09/28/2020 05:22:00 AM EST [facility] Name Value Range Interpretation Code Description Data Carlota rce(s) Supporting Document(s) SARS coronavirus 2 RNA [facility] This lab was ordered by [facility] and reported by [facility]. ID Date Data Source [id number] 09/21/2020 08:00:00 AM EDT [facility] Name Value Range Interpretation Code Description Data Carlota rce(s) Supporting Document(s) SARS coronavirus 2 RNA [facility] This lab was ordered by [facility] and reported by [facility]. ID Date Data Source [id number] 09/14/2020 05:32:00 AM EDT [facility] Name Value Range Interpretation Code Description Data Carlota rce(s) Supporting Document(s) SARS coronavirus 2 RNA [facility] This lab was ordered by [facility] and reported by [facility]. ID Date Data Source [id number] 09/07/2020 08:00:00 AM EDT [facility] Name Value Range Interpretation Code Description Data Carlota rce(s) Supporting Document(s) SARS coronavirus 2 RNA [facility] This lab was ordered by [facility] and reported by [facility]. ID Date Data Source [id number] 08/31/2020 06:00:00 AM EDT [facility] Name Value Range Interpretation Code Description Data Carlota rce(s) Supporting Document(s) SARS coronavirus 2 RNA [facility] This lab was ordered by [facility] and reported by [facility]. ID Date Data Source [id number] 08/24/2020 06:00:00 AM EDT [facility] Name Value Range Interpretation Code Description Data Carlota rce(s) Supporting Document(s) SARS coronavirus 2 RNA [facility] This lab was ordered by [facility] and reported by [facility]. ID Date Data Source [id number] 08/17/2020 05:32:00 AM EDT [facility] Name Value Range Interpretation Code Description Data Carlota rce(s) Supporting Document(s) SARS coronavirus 2 RNA [facility] This lab was ordered by [facility] and reported by [facility]. ID Date Data Source [id number] 08/12/2020 10:55:56 AM EDT [facility] Description of Procedure: Retinal images of both eyes not obtained at this time. PT states he had an eye exam in Dec [address] [facility]. Pt states he is going to have them send his eye exam report to the clinic. Name Value Range Interpretation Code Description Data Carlota rce(s) Supporting Document(s) ID Date Data Source [id number] 08/10/2020 05:30:00 AM EDT [facility] Name Value Range Interpretation Code Description Data Carlota rce(s) Supporting Document(s) SARS coronavirus 2 RNA [facility] This lab was ordered by [facility] and reported by [facility]. ID Date Data Source [id number] 08/03/2020 08:39:02 AM EDT [facility] Measurements & CalculationsHeight: 70 inches (5 ft. 10 in.) 177.80 cm Weight: 277.4 pounds 126.09 kg Body Mass Index (BMI): 39.95BMI Interpretation: ObeseBody Surface Area (BSA): 2.40Weight Management Education Done (Nutrition/Physical Activity)Vital SignsTemperature: 98.6F 37C tympanic Pulse Rate: 86 beats/minuteRespiratory Rate: 18 respirations/minuteBlood Pressure: 130/88 left arm sitting automaticO2 Saturation: 97% Vital Signs performed by: Mindy Addison LPN, August 03, 2020 8:42 AMVital Signs performed by: Gualberto HORN, August 03, 2020 9:08 AMInitial Intake Information From: patientRoom #: 1Infectious Disease / Travel ScreeningRecent travel for you or any close contacts? NoHave you had any close contact with anyone diagnosed with or under investigation for COVID-19 (coronavirus)? NoFever? NoRespiratory symptoms: cough, cold, congestion, shortness of breath, difficulty breathing? NoLoss of smell? NoLoss of taste? NoSmoking, Tobacco, Vaping or Smoke Exposure StatusSmoke Status: never smokerTobacco Use: NoDo you vape? NoPassive Smoke Exposure: NoHealthcare HistorySince your last office visit...Have you been admitted to the hospital? NoHave you been to an emergency room (ER) or urgent care clinic? NoHave you seen another healthcare provider? NoHave you seen a dentist? NoIntake performed by: Mindy Addison LPN, August 03, 2020 8:41 AMRate Your HealthIn general, would you say your health is? GoodPain AssessmentAre you currently having any pain which... You would like your provider to address? No Affects your activity level? NoDepression Screening - PHQ-2Over the last two weeks, have you... Had little interest or pleasure in doing things? Not at all Been feeling down, depressed, or hopeless? Not at all PHQ-2 Score: 0Anxiety Screening - JOHANA-2Over the last two weeks, have you been... Feeling nervous, anxious, or on edge? Not at all Unable to stop or control worrying? Not at all JOHANA-2 Score: 0Food InsecurityWithin the past year...Did you worry whether your food would run out before you got money to buy more? Never trueWas there a time when the food you bought didn't last and you didn't have money to get more? Never trueScreening, Brief Intervention, & Referral to Treatment (SBIRT)Pre-Screening Questions How many times have you have 5 or more drinks in a day? 0How many times have you used an illegal drug or used a prescription medication for a non- medical reason? 0Performed by: Mindy Addison LPN, August 03, 2020 8:41 AMPatient History Medical History:HypertensionSeveral Bulging Disk-MVARotator Cuff left side-MVABell's Palsy twiceSurgical History:Double Hernia Surgery at age 5 or 6Family History:Cancer - Unknown (Father)Heart DiseaseDiabetesSocial/Personal History: Chief Complaintfollow-up visit: bp checkHistory of Present Illness (HPI)45 yo male presents for BP check.Needs refill of amlodipine, ran out 3 days ago. Admits to somewhat sluggish feeling, does work overnights and is sometimes up for 24 hours. Problem ReviewProblem List was reviewed and/or updated during this visit.Medication Reconciliation & ReviewMedication List was reviewed and/or updated during this visit, including review of any [id number] medications, herbal therapies, and/or supplements.Allergy ReviewAllergy List was reviewed and/or updated during this visit.Adult Preventive CareLabs/Meds/Other Counseling-Nutrition and Physical Activity:BMI Interpretation: Obese (08/03/2020) Counseling: Done (08/03/2020) Physical Activity: Done (08/03/2020)Review of Systems General: Denies loss of appetite, dizziness, fever, headache, feeling ill. Eyes: Denies blurring of vision, double vision. Cardiovascular: Denies chest pain, palpitations, feeling faint. admits to slight chronic ankle edema, unchanged with amlodipineRespiratory: Denies cough, difficulty breathing, shortness of breath. Gastrointestinal: Denies nausea, vomiting, diarrhea, pain or discomfort. Skin: Denies rash, redness. Neurologic: Denies weakness, feeling faint. Physical ExamGeneral Appearance: well nourished, well hydrated, no acute distress, obese maleDorsalis Pedis Pulse, Right: 2+Dorsalis Pedis Pulse, Left: 2+Peripheral Circulation: 1+ pitting edema b/l without erythema or pain, superficial varicosities visible on b/l lower legs right more than leftGait & Station: normalFoot Inspection, Right: normal examFoot Inspection, Left: normal examSkin, Inspection: no rashes, lesions, or ulcerationsMonofilament, Right: sensory intactMonofilament, Left: sensory intactOrientation: oriented to time, place, and personMood & Affect: no depression, anxiety, or agitationJudgment & Insight: intactRate Your HealthIn general, would you say your health is? GoodAssessment & Plan Problems:Added: Asymptomatic varicose veins of bilateral lower extremities (ICD-454.9) (JDK74-A57.93) Assessment: Instructions: Recommend b/l knee high compression socks OTC. Consider vascular surgery referral for evaluation if these progress.Assessed:Type 2 diabetes mellitus without complications (NMW24-F51.9) Assessment: Instructions: A1c is at goal at 6.3 currently. Foot exam updated today. Due for eye exam at this time. Recommend low carbohydrate diet: reduce pasta, bread, potatoes, rice. If you do eat carbohydrates, better choices are whole wheat and brown rice products. Recommend portion control and avoidance of soda and sugary foods. Increase physical activity and monitor weight.Mixed hyperlipidemia (ICD-272.2) (ICD10- E78.2) Assessment: Instructions: Significantly improved with Simvastatin daily, continue current dose.Person consulting for explanation of examination or test findings (ICD-V65.8) (WFY91-W42.2) Assessment: Instructions: 07/30/2020 labs reviewed in detail.Benign hypertension (ICD-401.1) (MHW71-O19) Assessment: Instructions: BP at goal today. Continue both Lisinopril and Amlodipine daily. Recommend reduced salt intake, cut back on caffeine and alcohol, increase physical activity. We reviewed the [place] [facility] risks associated with uncontrolled high blood pressure, including stroke and heart attack. Goal BP is <140/90, please call the office if your blood pressures are consistently running higher than that cutoff. Call 911 or report to the closest ER for chest pain, shortness of breath, dizziness, or passing out.Obesity (ICD-278.00) (CAU27-O51.09) Assessment: Instructions: Successful weight loss efforts. Keep up the great work!BMI 39.0-39.9 (ICD-V85.39) (WSX53-P19.39) Assessment: Instructions: As above.Removed:Increased frequency of urination (ICD-788.41) (QYA70-S61.0), Anemia, unspecified (ASW79-H24.9), Encounter for screening for other metabolic disorders (ZBO49-Q81.228)Patient Instructions/Care Plan: Type 2 diabetes mellitus without complications: A1c is at goal at 6.3 currently. Foot exam updated today. Due for eye exam at this time. Recommend low carbohydrate diet: reduce pasta, bread, potatoes, rice. If you do eat carbohydrates, better choices are whole wheat and brown rice products. Recommend portion control and avoidance of soda and sugary foods. Increase physical activity and monitor weight.Mixed hyperlipidemia: Significantly improved with Simvastatin daily, continue current dose.Person consulting for explanation of examination or test findings: 07/30/2020 labs reviewed in detail.Benign hypertension: BP at goal today. Continue both Lisinopril and Amlodipine daily. Recommend reduced salt intake, cut back on caffeine and alcohol, increase physical activity. 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 Goal BP is <140/90, please call the office if your blood pressures are consistently running higher than that cutoff. Call 911 or report to the closest ER for chest pain, shortness of breath, dizziness, or passing out.Obesity: Successful weight loss efforts. Keep up the great work !BMI 39.0-39.9: As above.Asymptomatic varicose veins of bilateral lower extremities: Recommend b/l knee high compression socks OTC. Consider vascular surgery referral for evaluation if these progress. Plan developed in collaboration with patient and/or familyMedications:BLOOD GLUCOSE TEST IN VITRO STRIPLANCETSBLOOD GLUCOSE MONITOR SYSTEM W/DEVICE KITLISINOPRIL 5 MG ORAL TABLETSIMVASTATIN 20 MG ORAL TABLETAMLODIPINE BESYLATE 10 MG ORAL TABLETMedication Changes:Refilled:LISINOPRIL 5 MG ORAL TABLET-Take 1 tablet po daily Qty: 90[Tablet] Refills: 1 Method: ElectronicSIMVASTATIN 20 MG ORAL TA BLET-Take 1 tablet po daily Qty: 90[Tablet] Refills: 1 Method: ElectronicAMLODIPINE BESYLATE 10 MG ORAL TABLET-1 tablet po daily Qty: 90[Tablet] Refills: 1 Method: ElectronicNew Prescription:BLOOD GLUCOSE MONITOR SYSTEM W/DEVICE KIT-Test fasting blood sugar once daily and prn Qty: 1[Kit] Refills: 0 Method: ElectronicLANCETS-Test fasting blood sugar once daily and prn x 90 days Qty: 100[Unspecified] Refills: 3 Method: ElectronicBLOOD GLUCOSE TEST IN VITRO STRIP-Test fasting blood sugar once daily and prn x 90 days Qty: 100[Strip] Refills: 3 Method: ElectronicRemoved:AMOXICILLIN 500 MG CAPS-1 tablet by mouth every 8 hours until gone Qty: 21[Capsule] Refills: 0Allergies:* LATEX (Critical)Orders:Adult - Ofc Vst, EST, Level III [CPT-82888] Follow-Up Return to clinic: in 90 days for diabetesClinical Visit Summary CompletedMedications:AMLODIPINE BESYLATE 10 MG ORAL TABLET (AMLODIPINE BESYLATE) 1 tablet po daily #90[Tablet] x 1 Route:ORAL Entered and Authorized by: Gualberto HORN Method used: Electronically to [facility]* (retail) [place] [address] Fax: Note to Pharmacy: Route: ORAL; Indications: BENIGN HYPERTENSION RxID: [id number] 20 MG ORAL TABLET (SIMVASTATIN) Take 1 tablet po daily #90[Tablet] x 1 Route:ORAL Entered and Authorized by: Gualberto HORN Method used: Electronically to [facility]* (retail) [id number] [place] [address] Note to Pharmacy: Route: ORAL; Indications: MIXED HYPERLIPIDEMIA RxID: [id number] 5 MG ORAL TABLET (LISINOPRIL) Take 1 tablet po daily #90[Tablet] x 1 Route:ORAL Entered and Authorized by: Gualberto HORN Method used: Electronically to [facility] [address]* (retail) [place] [address] Note to Pharmacy: Route: ORAL; Indications: BENIGN HYPERTENSION;TYPE 2 DIABETES MELLITUS WITHOUT COMPLICATIONS RxID: [id number] GLUCOSE TEST IN VITRO STRIP (GLUCOSE BLOOD) Test fasting blood sugar once daily and prn x 90 days #100[Strip] x 3 Route:IN VITRO Entered and Authorized by: Gualberto HORN Method used: Electronically to [facility] [address]* (retail) [id number] [place] [address] Note to Pharmacy: Route: IN VITRO; Indications: TYPE 2 DIABETES MELLITUS WITHOUT COMPLICATIONS RxID: [id number] (LANCETS) Test fasting blood sugar once daily and prn x 90 days #100[Unspecified] x 3 Entered and Authorized by: Gualberto HORN Method used: Electronically to [facility] [address]* (retail) [place] [address] Indications: TYPE 2 DIABETES MELLITUS WITHOUT COMPLICATIONS RxID: [id number] GLUCOSE MONITOR SYSTEM W/DEVICE KIT (BLOOD GLUCOSE MONITORING SUPPL) Test fasting blood sugar once daily and prn #1[Kit] x 0 Entered and Authorized by: Gualberto HORN Method used: Electronically to [facility] [address]* (retail) [place] [address] Fax: Indications: TYPE 2 DIABETES MELLITUS WITHOUT COMPLICATIONS RxID: [id number] AMOXICILLIN 500 MG CAPS (AMOXICILLIN) 1 tablet by mouth every 8 hours until gone #21[Capsule] x 0 Route:ORAL Entered by: Mindy Addison LPN Authorized by: Lilian Cleaning DDS Method used: Electronically to [facility]* (retail) [place] [address] Fax: RxID: [id number] signed by Gualberto HORN on 08/03/2020 at 9:10 AM Name Value Range Interpretation Code Description Data Carlota rce(s) Supporting Document(s) ID Date Data Source [id number] 08/03/2020 05:55:00 AM EDT [facility] Name Value Range Interpretation Code Description Data Carlota rce(s) Supporting Document(s) SARS coronavirus 2 RNA [facility] This lab was ordered by [facility] and reported by [facility]. ID Date Data Source [id number] 07/30/2020 09:21:34 AM EDT [facility] In-House Blood TestsDate/Time Colle cted: July 30, 2020 9:21 AMTest Result Reference Range Normal ValueComments: blood drawn in right hand Pt tolerated well. David Whitten RAILROADER, July 30, 2020 9:22 AMAssessment & Plan Orders:[id number] Vst-Est Level I [CPT-58222] 95502 - Venipuncture [CPT-01659] Name Value Range Interpretation Code Description Data Carlota rce(s) Supporting Document(s) ID Date Data Source [id number] 07/30/2020 09:12:00 AM EDT [facility] Name Value Range Interpretation Code Description Data Carlota rce(s) Supporting Document(s) BG FASTING 130 mg/dL 70-100 [facility] ID Date Data Source [id number] 07/30/2020 09:12:00 AM EDT [facility] Name Value Range Interpretation Code Description Data Carlota rce(s) Supporting Document(s) HGBA1C 6.3 % N [facility] ID Date Data Source [id number] 07/27/2020 07:59:00 AM EDT [facility] Name Value Range Interpretation Code Description Data Carlota rce(s) Supporting Document(s) SARS coronavirus 2 RNA [facility] This lab was ordered by [facility] and reported by [facility]. ID Date Data Source [id number] 07/20/2020 09:35:00 AM EDT [facility] Name Value Range Interpretation Code Description Data Carlota rce(s) Supporting Document(s) SARS coronavirus 2 RNA [facility] This lab was ordered by [facility] and reported by [facility]. ID Date Data Source [id number] 06/15/2020 05:30:00 AM EDT [facility] Name Value Range Interpretation Code Description Data Carlota rce(s) Supporting Document(s) SARS coronavirus 2 RNA [facility] This lab was ordered by [facility] and reported by [facility]. ID Date Data Source [id number] 06/08/2020 06:00:00 AM EDT [facility] Name Value Range Interpretation Code Description Data Carlota rce(s) Supporting Document(s) SARS coronavirus 2 RNA [facility] This lab was ordered by [facility] and reported by [facility]. ID Date Data Source [id number] 06/04/2020 12:27:20 PM EDT [facility] Current Problems: DENTAL CARIES EXTENDIN G INTO PULP (ICD-521.03) (ICD10- K02.63)Person consulting for explanation of examination or test findings (ICD- V65.8) (XMO34-N47.2)Mixed hyperlipidemia (ICD-272.2) (XCS75-W12.2)BMI 39.0-39.9 (ICD-V85.39) (DKL35-D05.39)Obesity (ICD-278.00) (OQO07-Z16.09)Encounter for general adult medical examination with abnormal findings (ICD-V70.0) (ICD10- Z00.01)Anemia, unspecified (VER90-O28.9)Encounter for screening for malignant neoplasm of prostate (ICD-V76.44) (GAK31-S21.5)Vitamin D deficiency, unspecified (NKP90-I38.9)Type 2 diabetes mellitus without complications (ICD10- E11.9)Hematochezia (ICD-578.1) (HFJ91-A05.1)Increased frequency of urination (ICD-788.41) (KHR22-G64.0)Pain in left shoulder (ICD-719.41) (WSM72-N33.512)Neck pain (ICD-723.1) (JZB85-F34.2)Encounter for screening for other metabolic disorders (GER70-F69.228)Benign hypertension (ICD-401.1) (BWZ72-A21)Problem list reviewed during this update.Current Medications: AMOXICILLIN 500 MG CAPS (AMOXICILLIN) 1 tablet by mouth every 8 hours until gone; Route: ORALLISINOPRIL 5 MG ORAL TABLET (LISINOPRIL) Take 1 tablet po daily; Route: ORALSIMVASTATIN 20 MG ORAL TABLET (SIMVASTATIN) Take 1 tablet po daily; Route: ORALAMLODIPINE BESYLATE 10 MG ORAL TABLET (AMLODIPINE BESYLATE) 1 tablet po daily; Route: ORALMedication list reviewed during this update.Current Allergies: * LATEX (Critical)Allergy list reviewed during this update. Dental Chart: Procedures:Type - CDT Code - Description B - (D0140) Limited oral evaluation - problem focused on Tooth # 31 (Performed by Lilian Cleaning DDS) B - (D2940) Sedative filling on Tooth # 31 on Tooth Surface DOL (Performed by Lilian Cleaning DDS) B - (D0220) Intraoral, periapical, first radiographic image on Tooth # 31 (Performed by Lilian Cleaning DDS) Chart Notes:brando (Jun 04 2020 12:52PM): Additional PPE requirements due to COVID-19 in the dental setting, N95, surgical mask, hair covering, gown and shield.S: CC:" I have tooth pain" O: RMHx (-) HBP, Diabeties, Heart Murmer HPI: [address]: 9 BP: 150/95 P: 89, PA #31, Large decay close to pulp. poss to palpation and percussion.A: DDS recommends RCT and Shiner or ext. , DX: Irreversible pulpitis. P: Refer to [facility] for RCT and Shiner.E-scribe Amoxicillin 500mg q8h until gone dispense 21 tabs zero refills Ebenezermart ArsenalInformed Pt about new pain management policy of the clinic regarding about narcotic,told pt to alternate Ibuprophen 600- 800mg and tylenol 500mg every 4 to 6 hrs for pain when needed. Assisted By: PD [place]: Lilian Mabry DDS by brando (06/04/2020 12:52 PM): Tooth Notes and Watches:- Tooth 31 Note: Patient wants RCT and Shiner, Referred to [facility].Lilian Cleaning DDS by isidro (06/04/2020 12:44 PM): Assessment & Plan Problems:Added: DENTAL CARIES EXTENDING INTO PULP (ICD-521.03) (ICD10- K02.63)Medications:AMOXICILLIN 500 MG CAPSLISINOPRIL 5 MG ORAL TABLETSIMVASTATIN 20 MG ORAL TABLETAMLODIPINE BESYLATE 10 MG ORAL TABLETMedication Changes:New Pre scription:AMOXICILLIN 500 MG CAPS-1 tablet by mouth every 8 hours until gone Qty: 21[Capsule] Refills: 0 Method: ElectronicAllergies:* LATEX (Critical)Orders:Multi-Service Referral [CPT-95617] Name Value Range Interpretation Code Description Data Carlota rce(s) Supporting Document(s) ID Date Data Source [id number] 06/01/2020 04:10:39 PM EDT [facility] Multiple Vital SignsInitial BP: 135/91Vi tals #2BP: 132/85 (primary) Measurements & CalculationsHeight: 70 inches 177.80 cm Weight: 281.8 pounds 128.09 kg Body Mass Index (BMI): 40.58BMI Interpretation: Morbidly ObeseBody Surface Area (BSA): 2.42Weight Management Education Done (Nutrition/Physical Activity)Vital SignsTemperature: 98.0F 36.67C tympanic Pulse Rate: 111 beats/minuteRespiratory Rate: 16 respirations/minuteBlood Pressure: 132/85 right arm sitting automaticO2 Saturation: 97% room airVital Signs performed by: Janine Gonzales , June 01, 2020 4:14 PMVital Signs performed by: Gualberto HORN, June 01, 2020 4:31 PMNurses Note started full 5 of lisinopril todayInitial Intake Information From: patientRoom #: 1Infectious Disease / Travel ScreeningRecent travel for you or any close contacts? NoHave you had any close contact with anyone diagnosed with or under investigation for COVID-19 (coronavirus)? NoFever? NoRespiratory symptoms: cough, cold, congestion, shortness of breath, difficulty breathing? NoLoss of smell? NoLoss of taste? NoSmoking, Tobacco, Vaping or Smoke Exposure StatusSmoke Status: never smokerTobacco Use: NoDo you vape? NoPassive Smoke Exposure: NoHealthcare HistorySince your last office visit...Have you been admitted to the hospital? NoHave you been to an emergency room (ER) or urgent care clinic? NoHave you seen another healthcare provider? NoHave you seen a dentist? NoIntake performed by: Janine Gonzales , June 01, 2020 4:12 PMRate Your HealthIn general, would you say your health is? GoodPain AssessmentAre you currently having any pain which... You would like your provider to address? No Affects your activity level? NoDepression Screening - PHQ-2Over the last two weeks, have you... Had little interest or pleasure in doing things? Not at all Been feeling down, depressed, or hopeless? Not at all PHQ-2 Score: 0Anxiety Screening - JOHANA-2Over the last two weeks, have you been... Feeling nervous, anxious, or on edge? Not at all Unable to stop or control worrying? Not at all JOHANA-2 Score: 0Food InsecurityWithin the past year...Did you worry whether your food would run out before you got money to buy more? NoWas there a time when the food you bought didn't last and you didn't have money to get more? NoScreening, Brief Intervention, & Referral to Treatment (SBIRT)Pre-Screening Questions How many times have you have 5 or more drinks in a day? 0How many times have you used an illegal drug or used a prescription medication for a non- medical reason? 0Performed by: Janine Gonzales , June 01, 2020 4:13 PMPatient History Medical History:HypertensionSeveral Bulging Disk-MVARotator Cuff left side-MVABell's Palsy twiceSurgical History:Double Hernia Surgery at age 5 or 6Family History:Cancer - Unknown (Father)Heart DiseaseDiabetesSocial/Personal History: Chief ComplaintBP recheckHistory of Present Illness (HPI)PT is a 44 y/o male, presents for HTN BP check.Pt continues with 10mg amlodipine and has only recently moved up to full tablet of lisinopril 5mg. Tolerating well without side effect. HPI performed by: Gualberto HORN, June 01, 2020 4:31 PMProblem ReviewProblem List was reviewed and/or updated during this visit.Medication Reconciliation & ReviewMedication List was reviewed and/or updated during this visit, including review of any [id number] medications, herbal therapies, and/or supplements.Allergy ReviewAllergy List was reviewed and/or updated during this visit.Adult Preventive CareProvider Calculated and Reviewed all Clinical Protocols for patient today. Labs/Meds/Other Counseling-Nutrition and Physical Activity:BMI Interpretation: Morbidly Obese (06/01/2020) Counseling: Done (06/01/2020) Physical Activity: Done (06/01/2020)Review of Systems General: Denies loss of appetite, chills, dizziness, fatigue, fever, headache, feeling ill. Cardiovascular: Denies chest pain, palpitations, feeling faint, peripheral edema. Respiratory: Denies cough, difficulty breathing, shortness of breath. Gastrointestinal: Denies nausea, vomiting, diarrhea, pain or discomfort. Neurologic: Denies weakness, feeling faint. Physical ExamGeneral Appearance: well nourished, well hydrated, no acute distress, obese maleRespiratory, Auscultation: clear to auscultation bilaterally; no rales, rhonchi, or wheezesCardiovascular, Auscultation: S1, S2 audible; no murmur, rub, or gallop; RRRPeripheral Circulation: no clubbing, cyanosis, edema, or varicositiesAbdomen: soft, non-tender, no masses, bowel sounds normalGait & Station: normalOrientation: oriented to time, place, and personJudgment & Insight: intactRate Your HealthIn general, would you say your health is? GoodAssessment & Plan Problems:Assessed:Benign hypertension (ICD-401.1) (JXV64-F01) Assessment: Instructions: Tolerating medications well, BP improving. Cleared to return to work tomorrow from PCP standpoint. Continue current medications as prescrib ed. Recommend reduced salt intake, cut back on caffeine and alcohol, increase physical activity. 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 Goal BP is <140/90, please call the office if your blood pressures are consistently running higher than that cutoff. Call 911 or report to the closest ER for chest pain, shortness of breath, dizziness, or passing out.Mixed hyperlipidemia (ICD-272.2) (AMV78-A81.2) Assessment: Instructions: Continue Simvastatin, repeat fasting labs prior to Jul 2020 appt.Type 2 diabetes mellitus without complications (BOR27-P63.9) Assessment: Instructions: Diet controlled at this time. Repeat A1c prior to next appt.Recommend low carbohydrate diet: reduce pasta, bread, potatoes, rice. If you do eat carbohydrates, better choices are whole wheat and brown rice products. Recommend portion control and avoidance of soda and sugary foods. Increase physical activity and monitor weight.Patient Instructions/Care Plan: Benign hypertension: Tolerating medications well, BP improving. Cleared to return to work tomorrow from PCP standpoint. Continue current medications as prescribed. Recommend reduced salt intake, cut back on caffeine and alcohol, increase physical activity. We reviewed the [place] [facility] risks associated with uncontrolled high blood pressure, including stroke and heart attack. Goal BP is <140/90, please call the office if your blood pressures are consistently running higher than that cutoff. Call 911 or report to the closest ER for chest pain, shortness of breath, dizziness, or passing out.Mixed hyperlipidemia: Continue Simvastatin, repeat fasting labs prior to Jul 2020 appt.Type 2 diabetes mellitus without complications: Diet controlled at this time. Repeat A1c prior to next appt.Recommend low carbohydrate diet: reduce pasta, bread, potatoes, rice. If you do eat carbohydrates, better choices are whole wheat and brown rice products. Recommend portion control and avoidance of soda and sugary foods. Increase physical activity and monitor weight. Plan developed in collaboration with patient and/or familyMedications:LISINOPRIL 5 MG ORAL TABLETSIMVASTATIN 20 MG ORAL TABLETAMLODIPINE BESYLATE 10 MG ORAL TABLETAllergies:* LATEX (Critical)Orders:COMP METABOLIC PANEL [CPT-36039] HgBA1c [CPT-35775] LIPID PANEL [CPT-50750] Adult - Ofc Vst, EST, Level III [CPT-69755] Follow-Up Return to clinic: July 2020 for follow upAdditional Follow-Up: HTN, HLD, sugarsClinical Visit Summary Completed __ Name Value Range Interpretation Code Description Data Carlota rce(s) Supporting Document(s) ID Date Data Source [id number] 05/26/2020 09:33:18 AM EDT [facility] Measurements & CalculationsHeight: 70 inches 177.80 cm Weight: 275.0 pounds 125 kg Body Mass Index (BMI): 39.60BMI Interpretation: ObeseBody Surface Area (BSA): 2.39Weight Management Education Done (Nutrition/Physical Activity)Vital SignsTemperature: 97.0F 36.11C tympanic Pulse Rate: 94 beats/minuteRespiratory Rate: 16 respirations/minuteBlood Pressure: 130/102 left arm sitting automaticO2 Saturation: 96% room airVital Signs performed by: Janine Gonzales , May 26, 2020 9:34 AMVital Signs performed by: Gualberto HORN, May 26, 2020 9:43 AMMultiple Vital SignsInitial BP: 142/102Vitals #2BP: 130/102 (primary)Performed by: Monica Barba MA, May 26, 2020 10:05 AMInitial Intake Information From: patientRoom #: 2Infectious Disease / Travel ScreeningRecent travel for you or any close contacts? NoHave you had any close contact with anyone diagnosed with or under investigation for COVID-19 (coronavirus)? NoFever? NoRespiratory symptoms: cough, cold, congestion, shortness of breath, difficulty breathing? NoLoss of smell? NoLoss of taste? NoSmoking, Tobacco, Vaping or Smoke Exposure StatusSmoke Status: never smokerTobacco Use: NoDo you vape? NoPassive Smoke Exposure: NoHealthcare HistorySince your last office visit...Have you been admitted to the hospital? NoHave you been to an emergency room (ER) or urgent care clinic? NoHave you seen another healthcare provider? NoHave you seen a dentist? NoIntake performed by: Janine Gonzales , May 26, 2020 9:35 AMRate Your HealthIn general, would you say your health is? GoodPain AssessmentAre you currently having any pain which... You would like your provider to address? No Affects your activity level? NoDepression Screening - PHQ-2Over the last two weeks, have you... Had little interest or pleasure in doing things? Not at all Been feeling down, depressed, or hopeless? Not at all PHQ-2 Score: 0Anxiety Screening - JOHANA-2Over the last two weeks, have you been... Feeling nervous, anxious, or on edge? Not at all Unable to stop or control worrying? Not at all JOHANA-2 Score: 0Food InsecurityWithin the past year...Did you worry whether your food would run out before you got money to buy more? NoWas there a time when the food you bought didn't last and you didn't have money to get more? NoScreening, Brief Intervention, & Referral to Treatment (SBIRT)Pre-Screening Questions How many times have you have 5 or more drinks in a day? 0How many times have you used an illegal drug or used a prescription medication for a non- medical reason? 0Performed by: Janine Gonzales , May 26, 2020 9:35 AMPatient History Medical History:HypertensionSeveral Bulging Disk-MVARotator Cuff left side-MVABell's Palsy twiceSurgical History:Double Hernia Surgery at age 5 or 6Family History:Cancer - Unknown (Father)Heart DiseaseDiabetesSocial/Personal History: Nurses Note has not started lisinoprilhave not taken amlodipine today -has taken for 5 daysChief Complaintfollow up high blood pressureHistory of Present Illness (HPI)Pt is a 44 y/o male with HTN, presents for BP recheck.Pt resumed Amlodipine 10mg daily at last visit, has only taken a full tablet for the lats few days. Denies concerns. BP is improved but diastolic remains elevated. States work will require he be seen at employee health for BP check prior to returning to work. Had fasting labs on 05/25/2020: elevated FBS at 116 with A1c of 6.7, slightly elevated bili at 1.2, otherwise unremarkable CMP, elevated trigs and LDL at 199, normal iron and thyroid studies, vitamin D deficiency at 17.2, no anemia. Negative urine culture from 05/21/2020. Problem ReviewProblem List was reviewed and/or updated during this visit.Medication Reconciliation & ReviewMedication List was reviewed and/or updated during this visit, including review of any anjc-zum-sqlnmbw medications, herbal therapies, and/or supplements.Allergy ReviewAllergy List was reviewed and/or updated during this visit.Adult Preventive CareProvider Calculated and Reviewed all Clinical Protocols for patient today. Labs/Meds/Other Counseling-Nutrition and Physical Activity:BMI Interpretation: Obese (05/26/2020) Counseling: Done (05/26/2020) Physical Activity: Done (05/26/2020)Review of Systems General: Denies loss of appetite, chills, dizziness, fatigue, fever, headache, feeling ill. Cardiovascular: Denies chest pain, palpitations, feeling faint, peripheral edema. Respiratory: Denies cough, difficulty breathing, shortness of breath. Gastrointestinal: Denies nausea, vomiting, diarrhea, pain or discomfort. Neurologic: Denies weakness, numbness/tingling, feeling faint. Endocrine: Denies cold intolerance, heat intolerance, excessive thirst, excessive hunger, excessive urination. Physical ExamGeneral Appearance: well nourished, well hydrated, no acute distress, obese maleEyes, External: conjunctivae and lids normal, EOMIRespiratory, Auscultation: clear to auscultation bilaterally; no rales, rhonchi, or wheezesCardiovascular, Auscultation: S1, S2 audible; no murmur, rub, or gallop; RRRPeripheral Circulation: no clubbing, cyanosis, edema, or varicositiesAbdomen: soft, non-tender, no masses, bowel sounds normalGait & Station: normalOrientation: oriented to time, place, and personJudgment & Insight: intactRate Your HealthIn general, would you say your health is? GoodAssessment & Plan Problems:Added: Mixed hyperlipidemia (ICD-272.2) (ICD10- E78.2) Assessment: Instructions: Start Simvastatin 20mg daily. Low fat diet.Obesity (ICD-278.00) (QXY55-G11.09) Assessment: Instructions: Recommend healthy lifestyle modification. Encourage portion control, healthy food choices, and increasing routine physical activity. Recommendation is for 150 minutes throughout the week of cardiovascular exercise.BMI 39.0-39.9 (ICD- V85.39) (TUP31-I03.39) Assessment: Instructions: As above.Person consulting for explanation of examination or test findings (ICD-V65.8) (WJR06-M55.2) Assessment: Instructions: Labs reviewed in detail today.Assessed:Benign hypertension (ICD-401.1) (TNT50-W22) Assessment: Instructions: Improved but remains elevated. Take 1 full tablet of Amlodipine daily in the morning, add back your prior 2.5mg of Lisinopril (cut 5mg tablets in half and take 1/2 daily). Follow-up next week.Vitamin D deficiency, unspecified (ELP14-T90.9) Assessment: Instructions: Start 2000 units Vitamin D3 daily over the counter.Type 2 diabetes mellitus without complications (DKO09-D17.9) Assessment: Instructions: Will hold off on medication at this time. Recommend low carbohydrate diet: reduce pasta, bread, potatoes, rice. If you do eat carbohydrates, better choices are whole wheat and brown rice products. Recommend portion control and avoidance of soda and sugary foods. Increase physical activity and monitor weight. Recommend annual evaluation of eye and foot health, either here or with a specialist office. Call when your health insurance is active and I will send testing supplies to your pharmacy.Anemia, unspecified (GVI12-R01.9) Assessment: Instructions: Resolved and stable blood counts at this time.Increased frequency of urination (ICD-788.41) (ICD10- R35.0) Assessment: Instructions: Normal PSA and negative urine culture. Likely secondary to diabetes.Hematochezia (ICD-578.1) (XIF94-S77.1) Assessment: Instructions: Pending GI referral.Patient Instructions/Care Plan: Benign hypertension: Improved but remains elevated. Take 1 full tablet of Amlodipine daily in the morning, add back your prior 2.5mg of Lisinopril (cut 5mg tablets in half and take 1/2 daily). Follow-up next week.Mixed hyperlipidemia: Start Simvastatin 20mg daily. Low fat diet.Vitamin D deficiency- unspecified: Start 2000 units Vitamin D3 daily over the counter.Type 2 diabetes mellitus without complications: Will hold off on medication at this time. Recommend low carbohydrate diet: reduce pasta, bread, potatoes, rice. If you do eat carbohydrates, better choices are whole wheat and brown rice products. Recommend portion control and avoidance of soda and sugary foods. Increase physical activity and monitor weight. Recommend annual evaluation of eye and foot health, either here or with a specialist office. Call when your health insurance is active and I will send testing supplies to your pharmacy.Anemia- unspecified: Resolved and stable blood counts at this time. Obesity: Recommend healthy lifestyle modification. Encourage portion control, healthy food choices, and increasing routine physical activity. Recommendation is for 150 minutes throughout the week of cardiovascular exercise.BMI 39.0-39.9: As above.Increased frequency of urination: Normal PSA and negative urine culture. Likely secondary to diabetes.Hematochezia: Pending GI referral.Person consulting for explanation of examination or test findings: Labs reviewed in detail today. Plan developed in collaboration with patient and/or familyMedications:LISINOPRIL 5 MG ORAL TABLETSIMVASTATIN 20 MG ORAL TABLETAMLODIPINE BESYLATE 10 MG ORAL TABLETMedication Changes:Refilled:AMLODIPINE BESYLATE 10 MG ORAL TABLET-1 tablet po daily Qty: 30[Tablet] Refills: 2 Method: ElectronicNew Prescription:SIMVASTATIN 20 MG ORAL TABLET-Take 1 tablet po daily Qty: 30[Tablet] Refills: 2 Method: ElectronicLISINOPRIL 5 MG ORAL TABLET-Take 1 tablet po daily Qty: 30[Tablet] Refills: 2 Method: ElectronicRemoved:LISINOPRIL 2.5 MG ORAL TABLET-1 po q dayChanged:From: ORAL AMLODIPINE BESYLATE 10 MG ORAL TABLET Qty: [id number] Refills: 30[Tablet] To: AMLODIPINE BESYLATE 10 MG ORAL TABLET-1 tablet po daily Qty: 30[Tablet] Refills: 2Allergies:* LATEX (Critical)Orders:Adult - Ofc Vst, EST, Level III [CPT-09704] Follow-Up Return to clinic: in 1 week for follow upAdditional Follow-Up: BP checkClinical Visit Summary Completed Name Value Range Interpretation Code Description Data Carlota rce(s) Supporting Document(s) ID Date Data Source [id number] 05/25/2020 11:30:00 AM EDT [facility] Name Value Range Interpretation Code Description Data Carlota rce(s) Supporting Document(s) URINECULTRTN NO GROWTH N [facility] ID Date Data Source [id number] 05/25/2020 10:36:45 AM EDT [facility] Labs In-House Urine TestsDate/Time Colle cted: May 25, 2020 10:37 AMDate/Time Received: May 25, 2020 10:37 AMTest Result Reference Range Normal ValueComments: urine sent [facility] Santhosh [place] [facility], May 25, 2020 10:37 AMBlood TestsDate/Time Collected: May 25, 2020 10:37 AMDate/Time Received: May 25, 2020 10:37 AMTest Result Reference Range Normal ValueComments: collected blood from left ac, patient tolertated [facility] [place] [facility], May 25, 2020 10:37 AMAssessment & Plan Orders:[id number]- Ofc Vst-Est Level I [CPT-58604] 63662 - Venipuncture [CPT-41294] Name Value Range Interpretation Code Description Data Carlota rce(s) Supporting Document(s) ID Date Data Source [id number] 05/25/2020 10:30:00 AM EDT [facility] Name Value Range Interpretation Code Description Data Carlota rce(s) Supporting Document(s) HCT 48.2 % 42.0-52.0 N [facility] HGB 15.7 g/dL 13.5-17.5 N [facility] MCH 32.6 G/DL pg 32.0-36.5 N [facility] MCHC 28.6 PG % 27.0-33.0 N [facility] PLATELETS 329 10 10*3/mm3 150-450 N [facility] RBC 5.48 10 10*6/mm3 4.30-6.10 N [facility] RDW 13.1 % 11.5-14.5 N [facility] WBC TOTAL 8.2 4.0-10.0 N [facility] ID Date Data Source [id number] 05/25/2020 10:30:00 AM EDT [facility] Name Value Range Interpretation Code Description Data Carlota rce(s) Supporting Document(s) VIT D25 TOT 17.2 ng/mL 30.0-100.0 L [facility] BG FASTING 116 mg/dL 70-100 H [facility] PSA 0.84 ng/mL < 4.00 N [facility] T4, FREE 1.12 ng/dL 0.76-1.46 N [facility] TSH 1.850 microintl units/mL 0.358-3.740 N [facility] ID Date Data Source [id number] 05/25/2020 10:30:00 AM EDT [facility] Name Value Range Interpretation Code Description Data Carlota rce(s) Supporting Document(s) HGBA1C 6.7 % N [facility] Health ID Date Data Source [id number] 05/21/2020 03:50:00 PM EDT [facility] Name Value Range Interpretation Code Description Data Carlota rce(s) Supporting Document(s) URINECULTRTN NO GROWTH N [facility] ID Date Data Source [id number] 05/20/2020 03:32:58 PM EDT [facility] Measurements & CalculationsHeight: 70 inches 177.80 cm Weight: 279.6 pounds 127.09 kg Body Mass Index (BMI): 40.26BMI Interpretation: Morbidly ObeseBody Surface Area (BSA): 2.41Weight Management Education Done (Nutrition/Physical Activity)Vital SignsTemperature: 97.2F 36.22C tympanic Pulse Rate: 86 beats/minuteRespiratory Rate: 16 respirations/minuteBlood Pressure: 171/109 left arm sitting automaticVital Signs performed by: Janine Gonzales , May 20, 2020 3:46 PMLabs In-House Urine TestsDate/Time Collected: May 20, 2020 4:02 PMDate/Time Received: May 20, 2020 4:02 PMTest Result Reference Range Normal ValueRoutine Urinalysis Color: yellow Yellow Appearance: clear Clear Leukocytes: negative Negative Nitrite: negative Negative Urobilinogen: negative Negative Protein: 0.15 g/L Negative pH: 5.51.02 5.0-6.5 Blood: 10 Harjeet/uL Negative Specific [place]: 1.020 1.020>=1.030 Ketone: negative Negative Bilirubin: negative Negative Glucose: negative NegativeJanine Gonzales , May 20, 2020 4:02 PMMultiple Vital SignsVitals #2BP: 166/118 Vitals #3BP: 164/122 Initial Intake Information From: patientRoom #: 2Infectious Disease / Travel ScreeningRecent travel for you or any close contacts? NoHave you had any close contact with anyone diagnosed with or under investigation for COVID-19 (coronavirus)? NoFever? NoRespiratory symptoms: cough, cold, congestion, shortness of breath, difficulty breathing? NoLoss of smell? NoLoss of taste? NoDetails: swabbed at work and has been negativeSmoking, Tobacco, Vaping or Smoke Exposure StatusSmoke Status: never smokerTobacco Use: NoDo you vape? NoHealthcare HistorySince your last office visit...Have you been admitted to the hospital? NoHave you been to an emergency room (ER) or urgent care clinic? NoHave you seen another healthcare provider? NoHave you seen a dentist? NoIntake performed by: Janine Gonzales , May 20, 2020 3:36 PMRate Your HealthIn general, would you say your health is? GoodPain AssessmentAre you currently having any pain which... You would like your provider to address? No Affects your activity level? NoDepression Screening - PHQ-2Over the last two weeks, have you... Had little interest or pleasure in doing things? Several days Been feeling down, depressed, or hopeless? Several days PHQ-2 Score: 2Anxiety Screening - JOHANA-2Over the last two weeks, have you been... Feeling nervous, anxious, or on edge? Not at all Unable to stop or control worrying? Not at all JOHANA-2 Score: 0Nurses Note past couple of months have noticed bloody stoolwas 1-2 times a week anow 3-4, sometimes will have a bowel movement 2x a dayhave been having feeling of urinary urgency the past 2-3 monthsran out of medication and have not had it since roughly SeptemberPHQ-9 1. Over the last 2 weeks, patient reports the following frequency of symptoms: a. Little interest or pleasure in doing things -Several days b. Feeling down, depressed, or hopeless -Several days c. Trouble falling asleep, staying asleep, or sleeping too much -Several days d. Feeling tired or having little energy -Several days e. Poor appetite or overeating - Several days f. Feeling bad about yourself, feeling that you are a failure, or feeling that you have let yourself or your family down -Nearly every day g. Trouble concentrating on things such as reading the newspaper or watching television -Not at all h. Moving or speaking so slowly that other people could have noticed. Or being so fidgety or restless that you have been moving around a lot more than usual -Not at all i. Thinking that you would be better off aidan d or that you want to hurt yourself in some way -Not at all2. If you checked off any problems, how difficult have these problems made it for you to do your work, take care of things at home, or get along with other people? -Not Difficult at AllToday's PHQ-9 Results Score: 8 Severity: Mild Diagnosis Recommendation: No recommendation Functional Impairment: Not Difficult at AllToday's Follow-Up Action Depression follow-up done. Follow-Up Action: Showing Improvement, No Changes NecessaryPRAPARE Sociodemographic Charact eristics Race: White Ethnicity: or Preferred Language: EnglishFamily and Home Address: [address] [place] [address] What is your housing situation today? I have housing Are you worried about losing your housing? NoMoney and Resources Employed? 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 Denies Insecurity: food, utilities, clothing, childcare director, phone, legal services, otherIn the past year, have you had trouble affording costs associated with health insurance (such as deductibles, co-payments, etc.)? NoSocial and Emotional Health How often do you see or talk to people that you care about and feel close to? Less than once a week How stressed are you? Very muchAdditional Optional Domains In the past 3 months, have you spent more than 2 nights in a row in a [place], long term, penitentiary center or juvenile correctional facility? No Has lack of transportation kept you from medical appointments or from getting your medications? Yes - medical and non- medicalIn the past year, have you had trouble paying the costs associated with health care or medicine (such as co-payments, costs for services, prices of medicines)? NoHow confident are you that you can control and manage most of your health problems? Somewhat confident Are you a refugee? No Do you feel physically and emotionally safe where you live? Yes In the past year, have you been afraid of a partner, ex-partner? NoScreening, Brief Intervention, & Referral to Treatment (SBIRT)Pre-Screening Questions How many times have you have 5 or more drinks in a day? 0How many times have you used an illegal drug or used a prescription medication for a non-medical reason? 0Performed by: Janine Gonzales , May 20, 2020 3:45 PMPatient History Medical History:HypertensionSeveral Bulging Disk-MVARotator Cuff left side-MVABell's Palsy twiceSurgical History:Double Hernia Surgery at age 5 or 6Family History:Cancer - Unknown (Father)Heart DiseaseDiabetesSocial/Personal History: Alcohol Use: CurrentlyFrequency: holidays/special occasions onlyDrug Use: NeverChief Complaintroutine physical exam/bp was elevated at work so they took him outHistory of Present Illness (HPI)Pt is a 44 y/o presents for annual PE.Pt has a few complaints: elevated BP, stopped meds in 09/2019 as he didn't feel he needed them any longer. Had a physical at [facility] work and they pulled him from work until his BP is better controlled. Notes bloody stools after holding stool overnight, then it is mucous-like and with blood on it and when wiping. Denies constipation, rectal pain. No food triggers. No known family history of GI disorders. HPI performed by: Gualberto HORN, May 20, 2020 4:08 PMProblem ReviewProblem List was reviewed and/or updated during this visit.Medication Reconciliation & ReviewMedication List was reviewed and/or updated during this visit, including review of any oukl-ezx-femzzem medications, herbal therapies, and/or supplements.Allergy ReviewAllergy List was reviewed and/or updated during this visit.Adult Preventive CareLabs/Meds/Other Counseling-Nutrition and Physical Activity:BMI Interpretation: Morbidly Obese (05/20/2020) Counseling: Done (05/20/2020) Physical Activity: Done (05/20/2020)Review of Systems General: Denies loss of appetite, chills, dizziness, fatigue, fever, headache, feeling ill. Eyes: Denies blurring of vision, double vision. Ears/Nose/Throat: Denies earache, decreased hearing, nasal congestion, sore throat, difficulty swallowing, swollen glands. Cardiovascular: Complains of elevated blood pressure. Denies chest pain, palpitations, feeling faint, peripheral edema. Respiratory: Denies cough, difficulty breathing, shortness of breath. Gastrointestinal: Complains of see HPI, blood in stool. Denies nausea, vomiting, diarrhea, constipation, pain or discomfort, black or tarry stools, heartburn. Musculoskeletal: Denies joint pain, body aches. Skin: Denies rash, suspicious lesions. Neurologic: Denies weakness, numbness/tingling, feeling faint. Physical ExamGeneral Appearance: well nourished, well hydrated, no acute distress, obese maleEyes, External: conjunctivae and lids normal, EOMIExternal Ears: normal, no lesions or deformitiesHearing: grossly intactOtoscopy: canals clear, tympanic membranes intact, no fluid, light reflex intact bilaterallyExternal Nose: normal, no lesions or deformitiesNasal: mucosa, septum, and turbinates normal, nares patentLips/Teeth/Gums: no gingival inflammation, no labial lesionsPharynx: tongue normal, posterior pharynx without erythema or exudate, no thrush/aphthous ulcerNeck: supple, no masses, trachea midline, full range of motion of neckThyroid: no nodules, masses, tenderness, or enlargementRespiratory, Auscultation: clear to auscultation bilaterally; no rales, rhonchi, or wheezesRespiratory, Effort: no intercostal retractions or use of accessory musclesCardiovascular, Auscultation: S1, S2 audible; no murmur, rub, or gallop; RRRPeripheral Circulation: no clubbing, cyanosis, edema, or varicositiesAbdomen: soft, non-tender, no masses, bowel sounds normalGait & Station: normalSkin, Inspection: no rashes, lesions, or ulcerationsOrientation: oriented to time, place, and personMood & Affect: no depression, anxiety, or agitationJudgment & Insight: intactRate Your HealthIn general, would you say your health is? GoodAssessment & Plan Problems:Added: Encounter for general adult medical examination with abnormal findings (ICD-V70.0) (YYX41-M86.01) Assessment: Instructions: Recommend annual medical appointments. Recommend routine dental and vision care. Recommend influenza vaccines annually.Type 2 diabetes mellitus without complications (LVQ01-T74.9) Assessment: Instructions: Fasting labs have been ordered for you today. When labs are drawn, please ensure that you have had nothing to eat or drink for 8-10 hours prior to the blood drawn. Water or black coffee is OK to have before the blood draw.Encounter for screening for malignant neoplasm of prostate (ICD-V76.44) (ADN98-F87.5) Assessment: Instructions: Screening lab ordered.Increased shukri quency of urination (ICD-788.41) (RVS28-Y57.0) Assessment: Instructions: No sign of UTI in the office today.Vitamin D deficiency, unspecified (NBT22-O17.9) Assessment: Instructions: Update labs as ordered.Anemia, unspecified (ICD10- D64.9) Assessment: Instructions: As above.Hematochezia (ICD-578.1) (ICD10- K92.1) Assessment: Instructions: GI referral.Assessed:Benign hypertension (ICD-401.1) (GAS61-E28) Assessment: Instructions: Start Amlodipine at 1/2 tablet daily x 7 days then increase to 1 tablet daily. Will hold off on resuming Lisinopril for the time being.Patient Instructions/Care Plan: Encounter for general adult medical examination with abnormal findings: Recommend annual medical appointments. Recommend routine dental and vision care. Recommend influenza vaccines annually.Type 2 diabetes mellitus without complications: Fasting labs have been ordered for you today. When labs are drawn, please ensure that you have had nothing to eat or drink for 8-10 hours prior to the blood drawn. Water or black coffee is OK to have before the blood draw.Benign hypertension: Start Amlodipine at 1/2 tablet daily x 7 days then increase to 1 tablet daily. Will hold off on resuming Lisinopril for the time being.Encounter for screening for malignant neoplasm of prostate: Screening lab ordered.Increased frequency of urination: No sign of UTI in the office today.Vitamin D deficiency- unspecified: Update labs as ordered.Anemia- unspecified: As above.Hematochezia: GI referral. Plan developed in collaboration with patient and/or familyMedications:AMLODIPINE BESYLATE 10 MG ORAL TABLETLISINOPRIL 2.5 MG ORAL TABLETMedication Changes:Refilled:AMLODIPINE BESYLATE 10 MG ORAL TABLET-1 po daily Qty: 30[Tablet] Refills: 5 Method: ElectronicAllergies:* LATEX (Critical)Orders:COMP METABOLIC PANEL [CPT-50569] CBC W/DIFF [CPT-84689] HgBA1c [CPT-37529] LIPID PANEL [CPT-78320] TSH [CPT- 69176] T-4 free [CPT-22819] Vitamin D 250H Unspecified [CPT-68547] URINE MICROALBUMIN - QUANTIATIVE [CPT-47421] PROSTATE CANCER SCREENING; PSA TEST [CPT- G0103] Urine Culture & Sensitivity [CPT-56685] IRON [CPT-32786] FERRITIN [CPT- 34321] Urinalysis-automated [CPT-31735] Gastroenterology Consult [CPT-00186] Preventive, Est, (40-64) [CPT-09881] Follow-Up Return to clinic: in 1 week for follow upAdditional Follow-Up: HTNClinical Visit Summary CompletedMedications:AMLODIPINE BESYLATE 10 MG ORAL TABLET (AMLODIPINE BESYLATE) 1 po daily #30[Tablet] x 5 Route:ORAL Entered and Authorized by: Gualberto HORN Method used: Electronically to [id number]* (retail) [id number] [place] [address] Note to Pharmacy: Route: ORAL; RxID: [id number] signed by Gualberto HORN on 05/26/2020 at 9:10 AM Name Value Range Interpretation Code Description Data Carlota rce(s) Supporting Document(s) ID Date Data Source [id number] 05/20/2020 03:32:58 PM EDT [facility] Center Name Value Range Interpretation Code Description Data Carlota rce(s) Supporting Document(s) APPEARANCE [facility] clear [facility] BILIRUBIN UR negative [facility] BLOOD UR DIP 10 Harjeet/uL [facility] GLUCOSE, [facility] KETONES URN negative [facility] NITRITE URN negative [facility] PH URINE 5.51.02 [facility] PROTEIN, URN 0.15 g/L [facility] SPEC GR URIN 1.020 [facility] UA COLOR yellow [facility] UROBILINOGEN negative [facility] WBC DIPSTK U negative [facility] ID Date Data Source [id number] 05/19/2020 08:36:00 AM EDT [facility] Name Value Range Interpretation Code Description Data Carlota rce(s) Supporting Document(s) SARS CORONAVIRUS 2 RNA [facility] This lab was ordered by [facility] and reported by [facility]. ID Date Data Source [id number] 05/11/2020 11:17:00 AM EDT [facility] Name Value Range Interpretation Code Description Data Carlota rce(s) Supporting Document(s) SARS CORONAVIRUS 2 RNA [facility] This lab was ordered by [facility] and reported by [facility]. ID Date Data Source [id number] 05/04/2020 06:00:00 AM EDT [facility] Name Value Range Interpretation Code Description Data Carlota rce(s) Supporting Document(s) SARS CORONAVIRUS 2 RNA [facility] This lab was ordered by [facility] and reported by [facility]. ID Date Data Source [id number] 04/30/2020 05:30:00 AM EDT [facility] Name Value Range Interpretation Code Description Data Carlota rce(s) Supporting Document(s) SARS CORONAVIRUS 2 RNA [facility] This lab was ordered by [facility] and reported by [facility]. ID Date Data Source [id number] 04/27/2020 05:30:00 AM EDT [facility] Name Value Range Interpretation Code Description Data Carlota rce(s) Supporting Document(s) SARS CORONAVIRUS 2 RNA [facility] This lab was ordered by [facility] and reported by [facility]. ID Date Data Source [id number] 04/23/2020 06:00:00 AM EDT [facility] Name Value Range Interpretation Code Description Data Carlota rce(s) Supporting Document(s) SARS CORONAVIRUS 2 RNA [facility] This lab was ordered by [facility] and reported by [facility]. ID Date Data Source [id number] 04/21/2020 06:00:00 AM EDT [facility] Name Value Range Interpretation Code Description Data Carlota rce(s) Supporting Document(s) SARS CORONAVIRUS 2 RNA [facility] This lab was ordered by [facility] and reported by [facility]. ID Date Data Source [id number] 04/15/2020 06:00:00 AM EDT [facility] Name Value Range Interpretation Code Description Data Carlota rce(s) Supporting Document(s) SARS CORONAVIRUS 2 RNA [facility] This lab was ordered by [facility] and reported by [facility]. ID Date Data Source [id number] 04/13/2020 05:30:00 AM EDT [facility] Name Value Range Interpretation Code Description Data Carlota rce(s) Supporting Document(s) SARS CORONAVIRUS 2 RNA [facility] This lab was ordered by [facility] and reported by [facility]. Procedure Vital Signs ID Date Data Source UNK Name Value Range Interpretation Code Description Data Source(s) Body weight 4608 [oz_av] 4608 [oz_av] CHENTE ([facility]) Systolic blood pressure 135 mm[Hg] 135 mm[Hg] A THENA ([facility]) Body mass index (BMI) [Ratio] 41.3 kg/m2 41.3 k g/m2 [facility]E ([facility]) Body height 70 [in_i] 70 [in_i] CHENTE ([facility]) Diastolic blood pressure 86 mm[Hg] 86 mm[Hg] CHENTE ([facility]) Body height 70 [in_i] 70 [in_i] [facility]ENTE ([facility]) Body height 70 [in_i] 70 [in_i] CHENTE ([facility]) Body surface area Derived from formula 2.44 m2 2.44 m2 [facility]) Body weight 128.369 kg 128.369 kg [facility] ([facility]) [place] body weight 172 [lb_av] 172 [lb_av] MEDEN T ([facility]) Body mass index (BMI) [Ratio] 39.5 kg/m2 39.5 k g/m2 [facility] ([facility]) Body weight 283.00 [lb_av] 283.00 [lb_av] MEDEN T ([facility]) Body height 71 [in_i] 71 [in_i] [facility] ([facility]) 5'11" Diastolic blood pressure 82 mm[Hg] 82 mm[Hg] [facility] ([facility]) Systolic blood pressure 146 mm[Hg] 146 mm[Hg] M HENRY ([facility]) Body weight 4438.4 [oz_av] 4438.4 [oz_av] ATHEN A ([facility]) Systolic blood pressure 130 mm[Hg] 130 mm[Hg] A THENA ([facility]) Body mass index (BMI) [Ratio] 39.95 kg/m2 39.95 kg/m2 CHENTE ([facility]) Body height 70 [in_i] 70 [in_i] CHENTE ([facility]) Diastolic blood pressure 88 mm[Hg] 88 mm[Hg] CHENTE ([facility]) Body weight 4508.8 [oz_av] 4508.8 [oz_av] ATHEN A ([facility]) Systolic blood pressure 132 mm[Hg] 132 mm[Hg] A THENA ([facility]) Body mass index (BMI) [Ratio] 40.58 kg/m2 40.58 kg/m2 CHENTE ([facility]) Body height 70 [in_i] 70 [in_i] CHENTE ([facility]) Diastolic blood pressure 85 mm[Hg] 85 mm[Hg] [facility]E ([facility]) Body weight 4508.8 [oz_av] 4508.8 [oz_av] ATHEN A ([facility]) Systolic blood pressure 132 mm[Hg] 132 mm[Hg] A [facility] ([facility]) Body height 70 [in_i] 70 [in_i] CHENTE ([facility]) Diastolic blood pressure 85 mm[Hg] 85 mm[Hg] CHENTE ([facility]) Body weight 4508.8 [oz_av] 4508.8 [oz_av] ATHEN A ([facility]) Systolic blood pressure 132 mm[Hg] 132 mm[Hg] A [facility] ([facility]) Body height 70 [in_i] 70 [in_i] CHENTE ([facility]) Diastolic blood pressure 85 mm[Hg] 85 mm[Hg] CH[facility]E ([facility]) Body weight 4400 [oz_av] 4400 [oz_av] CHENTE ([facility]) Systolic blood pressure 130 mm[Hg] 130 mm[Hg] A [facility] ([facility]) Body mass index (BMI) [Ratio] 39.60 kg/m2 39.60 kg/m2 CHENTE ([facility]) Body height 70 [in_i] 70 [in_i] [facility]E ([facility]) Diastolic blood pressure 102 mm[Hg] 102 mm[Hg] [facility] ([facility]) Body weight 4400 [oz_av] 4400 [oz_av] CHENTE ([facility]) Systolic blood pressure 130 mm[Hg] 130 mm[Hg] A [facility] ([facility]) Body height 70 [in_i] 70 [in_i] CH[facility]E ([facility]) Diastolic blood pressure 102 mm[Hg] 102 mm[Hg] [facility] ([facility]) Body weight 4400 [oz_av] 4400 [oz_av] [facility]E ([facility]) Systolic blood pressure 130 mm[Hg] 130 mm[Hg] A [facility] ([facility]) Body height 70 [in_i] 70 [in_i] CHENTE ([facility]) Diastolic blood pressure 102 mm[Hg] 102 mm[Hg] [facility] ([facility]) Body weight 4473.6 [oz_av] 4473.6 [oz_av] ATHEN A ([facility]) Systolic blood pressure 171 mm[Hg] 171 mm[Hg] A THENA ([facility]) Systolic blood pressure 166 mm[Hg] 166 mm[Hg] A THENA ([facility]) Systolic blood pressure 164 mm[Hg] 164 mm[Hg] A THENA ([facility]) Body mass index (BMI) [Ratio] 40.26 kg/m2 40.26 kg/m2 [facility] ([facility]) Body height 70 [in_i] 70 [in_i] CH[facility]E ([facility]) Diastolic blood pressure 109 mm[Hg] 109 mm[Hg] [facility] ([facility]) Diastolic blood pressure 109 mm[Hg] 109 mm[Hg] CH[facility]E ([facility]) Diastolic blood pressure 109 mm[Hg] 109 mm[Hg] [facility] ([facility]) Body weight 4473.6 [oz_av] 4473.6 [oz_av] ATHEN A ([facility]) Systolic blood pressure 171 mm[Hg] 171 mm[Hg] A THENA ([facility]) Systolic blood pressure 166 mm[Hg] 166 mm[Hg] A THENA ([facility]) Systolic blood pressure 164 mm[Hg] 164 mm[Hg] A THENA ([facility]) Body height 70 [in_i] 70 [in_i] CHENTE ([facility]) Diastolic blood pressure 109 mm[Hg] 109 mm[Hg] CHENTE ([facility]) Diastolic blood pressure 109 mm[Hg] 109 mm[Hg] CHENTE ([facility]) Diastolic blood pressure 109 mm[Hg] 109 mm[Hg] [facility]E ([facility]) Body weight 4473.6 [oz_av] 4473.6 [oz_av] ATHEN A ([facility]) Systolic blood pressure 171 mm[Hg] 171 mm[Hg] A THENA ([facility]) Systolic blood pressure 166 mm[Hg] 166 mm[Hg] A THENA ([facility]) Systolic blood pressure 164 mm[Hg] 164 mm[Hg] A THENA ([facility]) Body height 70 [in_i] 70 [in_i] CHENTE ([facility]) Diastolic blood pressure 109 mm[Hg] 109 mm[Hg] CHENTE ([facility]) Diastolic blood pressure 109 mm[Hg] 109 mm[Hg] CH[facility]E ([facility]) Diastolic blood pressure 109 mm[Hg] 109 mm[Hg] CHENTE ([facility]) Patient Treatment Plan of Care Planned Activity Planned Date Details Description Data Source (s) Amoxicillin 500 MG Oral Capsule CHENTE ([facility]) Amoxicillin 500 MG Oral Capsule CHENTE ([facility])
[2021-01-07] MEDS ORDERED: NS 1,000 ML IV ONE (07:00)
[2021-01-07] MEDS ORDERED: SIMETHICONE 40MG/0.6ML DROPS 30ML As Ordered ONE (07:09)
[2021-01-07] MEDS ORDERED: propofoL 200 MG/20 ML VIAL As Ordered ONE ×2 (07:17→07:56)
[2021-01-07] MEDS ORDERED: LIDOCAINE 2% 100MG/5ML SDV (FOR ANES.) As Ordered ONE (07:17)
--- NOTE | 2021-01-07 08:13 | ROOR ---
Patient Name: Ashish Selby Procedure Date: 01/07/2021 7:33 AM Date of : 1975 Age: 45 Room: [facility] Gender: Male Note Status: Finalized Procedure: Colonoscopy Indications: Hematochezia Providers: Garrett Haskins MD Referring MD: JUSTINA Larsen, Arcadio MACKENZIE MD Requesting Provider: Medicines: Monitored Anesthesia Care Complications: No immediate complications. Procedure: Pre-Anesthesia Assessment: - Prior to the procedure, a History and Physical was performed, and patient medications and allergies were reviewed. The patient is competent. The risks and benefits of the procedure and the sedation options and risks were discussed with the patient. All questions were answered and informed consent was obtained. Patient identification and proposed procedure were verified by the physician, the nurse and the anesthesiologist in the procedure room. Mental Status Examination: alert and oriented. Airway Examination: normal oropharyngeal airway and neck mobility. Respiratory Examination: clear to auscultation. CV Examination: normal. Prophylactic Antibiotics: The patient does not require prophylactic antibiotics. Prior Anticoagulants: The patient has taken no previous anticoagulant or antiplatelet agents. ASA Grade Assessment: II - A patient with mild systemic disease. After reviewing the risks and benefits, the patient was deemed in satisfactory condition to undergo the procedure. The anesthesia plan was to use monitored anesthesia care (MAC). Immediately prior to administration of medications, the patient was re-assessed for adequacy to receive sedatives. The heart rate, respiratory rate, oxygen saturations, blood pressure, adequacy of pulmonary ventilation, and response to care were monitored throughout the procedure. The physical status of the patient was re-assessed after the procedure. The Colonoscope was introduced through the anus and advanced to the cecum, identified by appendiceal orifice and ileocecal valve. The colonoscopy was performed without difficulty. The patient tolerated the procedure well. The quality of the bowel preparation was good. The ileocecal valve, appendiceal orifice, and rectum were photographed. Scope insertion time was 2 minutes. Scope withdrawal time was 10 minutes. The total duration of the procedure was 18 minutes. Findings: The perianal and digital rectal examinations were normal. A frond-like/villous, infiltrative and sessile partially obstructing large mass was found in the sigmoid colon and from 21 to 29 cm proximal to the anus. The mass was partially circumferential (involving two-thirds of the lumen circumference). The mass measured eight cm in length. Oozing was present. This was biopsied with a cold jumbo forceps for histology. Both the Proximal and distal Area of the colon (to the mass) was tattooed with an injection of Spot (carbon black). Non-bleeding external and internal hemorrhoids were found during retroflexion. The hemorrhoids were small. 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 Biopsied. Tattooed. - Non-bleeding external and internal hemorrhoids. Recommendation: - Patient has a contact number available for emergencies. The signs and symptoms of potential delayed complications were discussed with the patient. Return to normal activities tomorrow. Written discharge instructions were provided to the patient. - High fiber diet. - Continue present medications. - Await pathology results. - Refer to a surgeon at appointment to be scheduled. - Telephone GI clinic for pathology results in 1 week. - Return to primary care physician. Procedure Code(s): --- Professional --- 45222, Colonoscopy, flexible; with directed submucosal injection(s), any substance 55922, Colonoscopy, flexible; with biopsy, single or multiple Diagnosis Code(s): --- Professional --- D49.0, Neoplasm of unspecified behavior of digestive system K56.690, Other partial intestinal obstruction K64.8, Other hemorrhoids K92.1, Melena (includes Hematochezia) CPT copyright 2019 [employer]. All rights reserved. The codes documented in this report are preliminary and upon management services technician review may be revised to meet current compliance requirements. Garrett Haskins MD Garrett Haskins MD 01/07/2021 8:13:07 AM Electronically signed by Garrett Haskins MD Number of Addenda: 0 Note Initiated On: 01/07/2021 7:33 AM Estimated Blood Loss: Estimated blood loss was minimal.
[2021-01-07 08:34] VITALS: BP 141/79
== END 2021-01-07 08:36 | disposition home or self-care (01) ==
LOC: M OPP 06:45
PROVIDERS: ATTEND Internal Medicine Gastroenterology
DX: K92.1 Melena (principal); C18.7 Malignant neoplasm of sigmoid colon; K56.690 Other partial intestinal obstruction; K64.8 Other hemorrhoids; I10 Essential (primary) hypertension; E78.5 Hyperlipidemia, unspecified; D64.9 Anemia, unspecified; Z91.040 Latex allergy status; Z79.899 Other long term (current) drug therapy; Z82.49 Family history of ischemic heart disease and other diseases of the circulatory system; Z80.8 Family history of malignant neoplasm of other organs or systems

== ENCOUNTER → 2021-01-13 | Outpatient (CLI) | payer OTHER ==
[2021-01-13 09:14] LABS: BASO % 0.4 % (0.0-1.0); EOS # 0.3 10^3/uL (0.0-0.5); EOS % 3.8 % (0.0-3.0); HEMATOCRIT 39.9 % (42.0-52.0); HEMOGLOBIN 12.6 g/dl (13.5-17.5); LYMPH # 1.7 10^3/uL (1.5-5.0); LYMPH % 25.3 % (24.0-44.0); MEAN CORPUSCULAR HEMOGLOBIN 28.4 pg (27.0-33.0); MEAN CORPUSCULAR HGB CONC 31.6 g/dl (32.0-36.5); MEAN CORPUSCULAR VOLUME 90.1 fl (80.0-96.0); MONO # 0.6 10^3/uL (0.0-0.8); MONO % 9.4 % (2.0-8.0); NEUTROPHILS # 4.1 10^3/uL (1.5-8.5); NEUTROPHILS % 60.4 % (36.0-66.0); PLATELET COUNT, AUTOMATED 314 10^3/uL (150-450); RED BLOOD COUNT 4.43 10^6/uL (4.30-6.10); WHITE BLOOD COUNT 6.8 10^3/uL (4.0-10.0)
[2021-01-13 09:38] LABS: ALBUMIN 3.6 GM/DL (3.2-5.2); ALT/SGPT 43 U/L (12-78); BILIRUBIN,DIRECT 0.2 MG/DL (0.0-0.2); BILIRUBIN,TOTAL 0.9 MG/DL (0.2-1.0); BLOOD UREA NITROGEN 17 MG/DL (7-18); CREATININE FOR GFR 0.94 MG/DL (0.70-1.30); GLOMERULAR FILTRATION RATE > 60.0 (>60); TOTAL PROTEIN 7.1 GM/DL (6.4-8.2)
== END ==
LOC: M LAB 07:53
PROVIDERS: ATTEND Internal Medicine Gastroenterology
DX: C18.7 Malignant neoplasm of sigmoid colon (principal)

== ENCOUNTER → 2021-01-17 | Outpatient (CLI) | payer OTHER ==
[~2021-01-17] MED LIST changes: +GASTROGRAFIN SOLUTION 30ML (Q9963) As Ordered ONE; +ISOVUE-370 76% 100ML VIAL As Ordered ONE
--- NOTE | 2021-01-17 19:28 | REP ---
INDICATION: MAL ANCELMO OF SIGMOID COLON COMPARISON: None. TECHNIQUE: CT Scan of the abdomen and pelvis was performed with intravenous administration of 100 cc of Isovue 370, and oral contrast. FINDINGS: Lung bases: There is a small hiatal hernia. Liver: Normal Gallbladder: Unremarkable. Spleen: Normal. Adrenals: Normal. Pancreas: Normal. Kidneys: There are bilateral parapelvic cysts. Small and large bowel: There is a 5 cm segment of the sigmoid colon which appears thickened. Free fluid: None. Abdominal aorta: No aneurysm or dissection. Adenopathy: None. Appendix: Not inflamed. Osseous structures: Unremarkable. Pelvis: No mass. IMPRESSION: Thickening of a segment of the sigmoid colon approximately 5 cm in length. No other evidence of mass or adenopathy. Parapelvic cysts of both kidneys. Small hiatal hernia. <Electronically signed by Lee Lee > 01/17/211922
== END ==
LOC: M RAD 16:03
PROVIDERS: ATTEND Internal Medicine Gastroenterology
DX: K63.89 Other specified diseases of intestine (principal); K44.9 Diaphragmatic hernia without obstruction or gangrene
CPT/HCPCS: 74177; Q9963; Q9967

== ENCOUNTER → 2021-12-26 | Outpatient (REF) ==
[~2021-12-26] MED LIST changes: -GASTROGRAFIN SOLUTION 30ML (Q9963) As Ordered ONE; -ISOVUE-370 76% 100ML VIAL As Ordered ONE; -LISI-898 PO; -LISI2.5T2 PO; +LISI2.5T9 PO; +LISI5TAB11 PO
== END ==
LOC: M LABSMTC 09:03
PROVIDERS: ATTEND Pediatrics
DX: Z20.828 Contact with and (suspected) exposure to other viral communicable diseases (principal)

== ENCOUNTER → 2022-01-31 | Outpatient (CLI) | payer OTHER ==
[2022-01-31 11:11] LABS: BASO % 0.4 % (0.0-1.0); EOS # 0.1 10^3/uL (0.0-0.5); EOS % 1.3 % (0.0-3.0); HEMATOCRIT 41.5 % (42.0-52.0); HEMOGLOBIN 13.4 g/dl (13.5-17.5); LYMPH # 2.4 10^3/uL (1.5-5.0); LYMPH % 25.2 % (24.0-44.0); MEAN CORPUSCULAR HEMOGLOBIN 28.8 pg (27.0-33.0); MEAN CORPUSCULAR HGB CONC 32.3 g/dl (32.0-36.5); MEAN CORPUSCULAR VOLUME 89.1 fl (80.0-96.0); MONO # 0.6 10^3/uL (0.0-0.8); MONO % 6.8 % (2.0-8.0); NEUTROPHILS # 6.1 10^3/uL (1.5-8.5); NEUTROPHILS % 65.5 % (36.0-66.0); PLATELET COUNT, AUTOMATED 286 10^3/uL (150-450); RED BLOOD COUNT 4.66 10^6/uL (4.30-6.10); WHITE BLOOD COUNT 9.3 10^3/uL (4.0-10.0)
[2022-01-31 12:07] LABS: ALBUMIN 3.7 GM/DL (3.2-5.2); ALT/SGPT 47 U/L (12-78); BLOOD UREA NITROGEN 12 MG/DL (7-18); CALCIUM LEVEL 9.1 MG/DL (8.5-10.1); CARBON DIOXIDE LEVEL 28 MEQ/L (21-32); CHLORIDE LEVEL 107 MEQ/L (98-107); GLOMERULAR FILTRATION RATE > 60.0 (>60); GLUCOSE, FASTING 136 MG/DL (70-100); POTASSIUM SERUM 4.1 MEQ/L (3.5-5.1); SODIUM LEVEL 139 MEQ/L (136-145); TOTAL PROTEIN 7.6 GM/DL (6.4-8.2)
== END ==
LOC: M LAB 10:39
PROVIDERS: ATTEND Physician Assistant Medical
DX: C18.7 Malignant neoplasm of sigmoid colon (principal); E53.1 Pyridoxine deficiency

== ENCOUNTER → 2022-02-13 | Outpatient (REF) | LOC: M LABSMTC 10:18 | PROVIDERS: ATTEND Family Medicine | DX: Z20.822 Contact with and (suspected) exposure to COVID-19 (principal) ==

== ENCOUNTER → 2022-04-17 | Outpatient (REF) | LOC: M LABSMTC 09:14 | PROVIDERS: ATTEND Family Medicine | DX: Z20.822 Contact with and (suspected) exposure to COVID-19 (principal) ==

== ENCOUNTER → 2022-06-08 | Outpatient (CLI) | payer OTHER, MEDICAID | LOC: M SOG 08:01 | PROVIDERS: ATTEND Orthopaedic Surgery | DX: Z47.89 Encounter for other orthopedic aftercare (principal) ==

== ENCOUNTER → 2022-06-13 | Outpatient (REF) | LOC: M LABSMTC 09:05 | PROVIDERS: ATTEND Family Medicine | DX: Z20.822 Contact with and (suspected) exposure to COVID-19 (principal) ==

== ENCOUNTER → 2022-07-02 | Outpatient (REF) | LOC: M LABSMTC 09:02 | PROVIDERS: ATTEND Family Medicine | DX: Z11.52 Encounter for screening for COVID-19 (principal) ==

== ENCOUNTER → 2022-08-13 | Outpatient (REF) | LOC: M LABSMTC 10:37 | PROVIDERS: ATTEND Family Medicine | DX: Z20.822 Contact with and (suspected) exposure to COVID-19 (principal) ==

== ENCOUNTER 2022-10-21 07:56 | Emergency (ER) | payer OTHER, MEDICAID ==
[~2022-10-21] VITALS: Ht 177.8 cm; Wt 128.8 kg
[2022-10-21 07:57] VITALS: BP 171/89
[2022-10-21] MEDS ORDERED: GABA600T4 PO (08:16)
[2022-10-21] MEDS ORDERED: LISI10TA22 PO (08:16)
[2022-10-21] MEDS ORDERED: HYDR12.55 PO (08:16)
[2022-10-21] MEDS ORDERED: ALBU8.5H INH (08:16)
[2022-10-21] MEDS ORDERED: VITA100T14 PO (08:16)
[2022-10-21] MEDS ORDERED: VITA200016 PO (08:16)
== END 2022-10-21 10:43 | disposition left against medical advice (07) ==
LOC: M ED 07:56
DX: Z53.21 Procedure and treatment not carried out due to patient leaving prior to being seen by health care provider (principal)

== ENCOUNTER → 2022-10-27 | Outpatient (REF) | payer OTHER, MEDICAID ==
[~2022-10-27] MED LIST changes: +ALBU8.5H INH; +GABA600T4 PO; +HYDR12.55 PO; +LISI10TA22 PO; +VITA100T14 PO; +VITA200016 PO
== END ==
LOC: M LAB REF 16:31 → EEVIPCON 16:31
PROVIDERS: ATTEND Physician Assistant
DX: L73.9 Follicular disorder, unspecified (principal)

== ENCOUNTER → 2022-10-30 | Outpatient (REF) | payer OTHER, MEDICAID ==
[2022-10-30 14:57] LABS: HEMATOCRIT 42.7 % (42.0-52.0); HEMOGLOBIN 13.6 g/dl (13.5-17.5); MEAN CORPUSCULAR HEMOGLOBIN 29.2 pg (27.0-33.0); MEAN CORPUSCULAR HGB CONC 31.9 g/dl (32.0-36.5); MEAN CORPUSCULAR VOLUME 91.6 fl (80.0-96.0); PLATELET COUNT, AUTOMATED 294 10^3/uL (150-450); RED BLOOD COUNT 4.66 10^6/uL (4.30-6.10); WHITE BLOOD COUNT 6.9 10^3/uL (4.0-10.0)
[2022-10-30 15:19] LABS: ALBUMIN 3.6 G/DL (3.2-5.2); ALKALINE PHOSPHATASE 71 U/L (46-116); ALT/SGPT 41 U/L (7.0-40); AST/SGOT 22 U/L (<34); BILIRUBIN,TOTAL 1.2 MG/DL (0.3-1.2); BLOOD UREA NITROGEN 18 MG/DL (9-23); CALCIUM LEVEL 8.9 MG/DL (8.5-10.1); CARBON DIOXIDE LEVEL 26 MMOL/L (20-31); CHLORIDE LEVEL 102 MMOL/L (98-107); CHOLESTEROL LEVEL 223 MG/DL (<200); CHOLESTEROL RISK RATIO 5.18 (<5); CREATININE FOR GFR 0.87 MG/DL (0.70-1.30); GLOMERULAR FILTRATION RATE > 60.0 (>60); GLUCOSE, FASTING 150 MG/DL (60-100); LDL CHOLESTEROL 160.6 MG/DL (<100); NON-HDL-C 180 MG/DL; POTASSIUM SERUM 4.5 MMOL/L (3.5-5.1); SODIUM LEVEL 137 MMOL/L (136-145); TOTAL PROTEIN 6.9 G/DL (5.7-8.2); TRIGLYCERIDES LEVEL 97 MG/DL (<150)
[2022-10-30 16:43] LABS: HEMOGLOBIN A1c 6.8 % (4.0-6.0)
== END ==
LOC: M LAB REF 12:37
PROVIDERS: ATTEND Physician Assistant
DX: E11.319 Type 2 diabetes mellitus with unspecified diabetic retinopathy without macular edema (principal)

== ENCOUNTER → 2022-11-16 | Outpatient (REF) | LOC: M EMP 12:01 | PROVIDERS: ATTEND Family Medicine | DX: Z11.52 Encounter for screening for COVID-19 (principal) ==

== ENCOUNTER → 2022-11-22 | Outpatient (REF) | LOC: M LABSMTC 11:16 | PROVIDERS: ATTEND Family Medicine | DX: Z20.822 Contact with and (suspected) exposure to COVID-19 (principal) ==

== ENCOUNTER → 2023-02-23 | Outpatient (REF) | payer OTHER, MEDICAID ==
[2023-02-23 19:17] LABS: ALBUMIN 3.7 G/DL (3.2-5.2); BILIRUBIN,DIRECT 0.3 MG/DL (<0.4); BILIRUBIN,TOTAL 1.2 MG/DL (0.3-1.2); CHOLESTEROL RISK RATIO 4.05 (<5); HDL CHOLESTEROL 64.4 MG/DL (>40); NON-HDL-C 196.6 MG/DL; TOTAL PROTEIN 7.3 G/DL (5.7-8.2)
== END ==
LOC: M LAB REF 18:08
PROVIDERS: ATTEND Nurse Practitioner Family
DX: G51.0 Bell's palsy (principal); E78.2 Mixed hyperlipidemia; Z11.59 Encounter for screening for other viral diseases

== ENCOUNTER → 2023-03-30 | Outpatient (CLI) | payer OTHER | LOC: M PLARAD 13:19 | PROVIDERS: ATTEND Physician Assistant | DX: G51.0 Bell's palsy (principal) ==

== ENCOUNTER → 2023-03-30 | Outpatient (CLI) | payer OTHER ==
[2023-03-30 11:44] LABS: ALBUMIN 3.7 G/DL (3.2-5.2); BLOOD UREA NITROGEN 14 MG/DL (9-23); CALCIUM LEVEL 9.2 MG/DL (8.5-10.1); CARBON DIOXIDE LEVEL 27 MMOL/L (20-31); CHLORIDE LEVEL 102 MMOL/L (98-107); CREATININE FOR GFR 0.89 MG/DL (0.70-1.30); GLOMERULAR FILTRATION RATE > 60.0 (>60); GLUCOSE, FASTING 132 MG/DL (60-100); PHOSPHORUS LEVEL 3.6 MG/DL (2.5-4.9); POTASSIUM SERUM 4.2 MMOL/L (3.5-5.1); SODIUM LEVEL 137 MMOL/L (136-145)
== END ==
LOC: M LAB 09:44
PROVIDERS: ATTEND Physician Assistant
DX: I10 Essential (primary) hypertension (principal)

== ENCOUNTER → 2023-05-09 | Outpatient (REF) | LOC: M EMP 09:33 | PROVIDERS: ATTEND Family Medicine | DX: U07.1 COVID-19 (principal) ==

== ENCOUNTER → 2023-06-06 | Outpatient (REF) | payer OTHER ==
[2023-06-06 17:11] LABS: CREATININE, URINE 143.8 MG/DL
[2023-06-06 17:12] LABS: MALB URINE SIEMENS < 3.0 MG/L
== END ==
LOC: M LAB REF 16:20
PROVIDERS: ATTEND Physician Assistant
DX: E11.9 Type 2 diabetes mellitus without complications (principal)

== ENCOUNTER 2023-08-06 16:16 | Emergency (ER) | payer BC ==
[~2023-08-06] VITALS: Ht 180.3 cm; Wt 133.6 kg
[~2023-08-06 16:16] MED LIST changes: +ESCITALOPRAM; +LISI10TA24; +METF500T13; +SIMV40TA20
[2023-08-06 17:20] VITALS: BP 170/105
[2023-08-06] MEDS ORDERED: hydroCHLOROthiazide 12.5 MG CAPSULE PO ONE (17:20)
[2023-08-06] MEDS ORDERED: ONDANSETRON 4MG 2ML VIAL IV ONE (17:20)
[2023-08-06 18:08] LABS: BASO # 0.1 10^3/uL (0.0-0.2); BASO % 0.6 % (0.0-1.0); EOS # 0.2 10^3/uL (0.0-0.5); EOS % 2.6 % (0.0-3.0); HEMATOCRIT 42.7 % (42.0-52.0); HEMOGLOBIN 14.1 g/dl (13.5-17.5); LYMPH # 2.1 10^3/uL (1.5-5.0); LYMPH % 25.8 % (24.0-44.0); MEAN CORPUSCULAR HEMOGLOBIN 29.2 pg (27.0-33.0); MEAN CORPUSCULAR VOLUME 88.4 fl (80.0-96.0); MONO # 0.6 10^3/uL (0.0-0.8); MONO % 7.8 % (2.0-8.0); NEUTROPHILS % 62.3 % (36.0-66.0); PLATELET COUNT, AUTOMATED 295 10^3/uL (150-450); RED BLOOD COUNT 4.83 10^6/uL (4.30-6.10)
[2023-08-06] MEDS ORDERED: PROHANCE 279.3MG/ML 5ML VIAL As Ordered ONE (18:37)
[2023-08-06] MEDS ORDERED: PROHANCE 279.3MG/ML 15ML VIAL As Ordered ONE (18:37)
[2023-08-06 18:40] LABS: BLOOD UREA NITROGEN 11 MG/DL (9-23); CALCIUM LEVEL 8.7 MG/DL (8.5-10.1); CARBON DIOXIDE LEVEL 26 MMOL/L (20-31); CHLORIDE LEVEL 101 MMOL/L (98-107); CREATININE FOR GFR 0.77 MG/DL (0.70-1.30); GLOMERULAR FILTRATION RATE > 60.0 (>60); GLUCOSE, FASTING 116 MG/DL (60-100); POTASSIUM SERUM 5.3 MMOL/L (3.5-5.1); SODIUM LEVEL 137 MMOL/L (136-145)
[2023-08-06 19:36] VITALS: BP 167/86; TEMP 97.5
[2023-08-06] MEDS: MORPHINE 4 MG/ML 1ML VIAL IV PRN ×2 (19:36→21:28)
[2023-08-06] MEDS ORDERED: NS 1,000 ML IV ONE (21:15)
[2023-08-06] MEDS ORDERED: KETOROLAC 30 MG/ML 1ML VIAL IM ONE (21:15)
[2023-08-06] MEDS ORDERED: METOCLOPRAMIDE INJ 10MG/2ML VIAL IV ONE (21:15)
[2023-08-06 21:50] VITALS: O2SAT 99
[2023-08-06] MEDS ORDERED: PRED5PAK PO (22:38)
[2023-08-06] MEDS ORDERED: PRED20TA PO (22:38)
== END 2023-08-06 23:59 | disposition home or self-care (01) ==
LOC: M ED 16:16
DX: G43.B0 Ophthalmoplegic migraine, not intractable (principal); E11.9 Type 2 diabetes mellitus without complications; I10 Essential (primary) hypertension; E78.5 Hyperlipidemia, unspecified; Z91.040 Latex allergy status; Z79.811 Long term (current) use of aromatase inhibitors; Z79.4 Long term (current) use of insulin; Z79.899 Other long term (current) drug therapy
CPT/HCPCS: 70543; 70544; 70551; 80048; 85025; 86140; 96361; 96372; 96374; 96375; 96376; 99283; A9576; J1100; J1885; J2405; J2765

== ENCOUNTER → 2023-08-13 | Outpatient (CLI) | payer BC ==
[~2023-08-13] MED LIST changes: +PRED20TA PO; +PRED5PAK PO
[2023-08-13 15:59] LABS: FREE T4 1.21 NG/DL (0.89-1.76); TOTAL T3 99.6 NG/DL (60.0-181.0)
[2023-08-20 10:07] LABS: ACETYLCHOLINE RCPTOR BINDING A < 0.03 nmol/L (0.00-0.24); ACETYLCHOLINE RCPTOR BLOCK AB 17 % (0-25)
== END ==
LOC: M LAB 14:06
PROVIDERS: ATTEND Ophthalmology
DX: H53.2 Diplopia (principal)

== ENCOUNTER → 2023-08-13 | Outpatient (CLI) | payer BC ==
[2023-08-13 14:38] LABS: ALBUMIN 3.3 G/DL (3.2-5.2); ALKALINE PHOSPHATASE 65 U/L (46-116); ALT/SGPT 37 U/L (7.0-40); AST/SGOT 13 U/L (<34); BILIRUBIN,TOTAL 1.3 MG/DL (0.3-1.2); BLOOD UREA NITROGEN 18 MG/DL (9-23); CALCIUM LEVEL 8.2 MG/DL (8.5-10.1); CARBON DIOXIDE LEVEL 26 MMOL/L (20-31); CHLORIDE LEVEL 101 MMOL/L (98-107); CHOLESTEROL LEVEL 235 MG/DL (<200); GLOMERULAR FILTRATION RATE > 60.0 (>60); GLUCOSE, FASTING 123 MG/DL (60-100); HDL CHOLESTEROL 63.5 MG/DL (>40); LDL CHOLESTEROL 109.7 MG/DL (<100); NON-HDL-C 171.5 MG/DL; POTASSIUM SERUM 3.6 MMOL/L (3.5-5.1); SODIUM LEVEL 137 MMOL/L (136-145); THYROID STIMULATING HORMONE 3.393 uIU/ML (0.55-4.78); TOTAL PROTEIN 6.6 G/DL (5.7-8.2); TRIGLYCERIDES LEVEL 309 MG/DL (<150)
== END ==
LOC: M LAB 13:12
PROVIDERS: ATTEND Physician Assistant
DX: E78.2 Mixed hyperlipidemia (principal); E11.9 Type 2 diabetes mellitus without complications

== ENCOUNTER → 2024-05-13 | Outpatient (CLI) | payer BC | LOC: M RAD 10:28 | PROVIDERS: ATTEND Nurse Practitioner Family | DX: K59.00 Constipation, unspecified (principal); M54.42 Lumbago with sciatica, left side; M47.816 Spondylosis without myelopathy or radiculopathy, lumbar region ==

== ENCOUNTER → 2024-06-27 | Outpatient (CLI) | payer BC | LOC: M WUC 15:33 | PROVIDERS: ATTEND Nurse Practitioner Family | DX: M20.12 Hallux valgus (acquired), left foot (principal); M79.672 Pain in left foot ==

== ENCOUNTER → 2024-08-26 | Outpatient (CLI) | payer BC ==
[~2024-08-26] MED LIST changes: +GABA-1490 PO; -GABA600T4 PO
[2024-08-26 12:11] LABS: HEMATOCRIT 42.1 % (42.0-52.0); HEMOGLOBIN 13.6 g/dl (13.5-17.5); MEAN CORPUSCULAR HEMOGLOBIN 29.6 pg (27.0-33.0); MEAN CORPUSCULAR HGB CONC 32.3 g/dl (32.0-36.5); MEAN CORPUSCULAR VOLUME 91.5 fl (80.0-96.0); PLATELET COUNT, AUTOMATED 303 10^3/uL (150-450); WHITE BLOOD COUNT 8.5 10^3/uL (4.0-10.0)
[2024-08-26 12:42] LABS: ALBUMIN 3.5 G/DL (3.2-5.2); ALKALINE PHOSPHATASE 70 U/L (46-116); ALT/SGPT 30 U/L (7.0-40); AST/SGOT 11 U/L (<34); BILIRUBIN,TOTAL 0.9 MG/DL (0.3-1.2); BLOOD UREA NITROGEN 15 MG/DL (9-23); CALCIUM LEVEL 9.5 MG/DL (8.5-10.1); CARBON DIOXIDE LEVEL 26 MMOL/L (20-31); CHLORIDE LEVEL 106 MMOL/L (98-107); CHOLESTEROL LEVEL 247 MG/DL (<200); CHOLESTEROL RISK RATIO 4.82 (<5); GLOMERULAR FILTRATION RATE > 60.0 (>60); GLUCOSE, FASTING 120 MG/DL (60-100); HDL CHOLESTEROL 51.2 MG/DL (>40); LDL CHOLESTEROL 171.4 MG/DL (<100); NON-HDL-C 195.8 MG/DL; POTASSIUM SERUM 4.1 MMOL/L (3.5-5.1); SODIUM LEVEL 137 MMOL/L (136-145); TOTAL PROTEIN 6.9 G/DL (5.7-8.2); TRIGLYCERIDES LEVEL 122 MG/DL (<150)
[2024-08-26 12:45] LABS: CREATININE, URINE 139.6 MG/DL; MAU/CREAT RATIO 7.8 MCG/MG (0.0-30.0)
== END ==
LOC: M WUC 10:03
PROVIDERS: ATTEND Physician Assistant
DX: E11.319 Type 2 diabetes mellitus with unspecified diabetic retinopathy without macular edema (principal)

== ENCOUNTER → 2024-10-30 | Outpatient (REF) | payer BC | LOC: M LAB REF 16:13 | PROVIDERS: ATTEND Physician Assistant | DX: J02.9 Acute pharyngitis, unspecified (principal); R05.9 Cough, unspecified ==

== ENCOUNTER → 2025-01-13 | Outpatient (CLI) | payer BC | LOC: M RAD 09:22 | PROVIDERS: ATTEND Physician Assistant | DX: M79.672 Pain in left foot (principal); E11.319 Type 2 diabetes mellitus with unspecified diabetic retinopathy without macular edema ==

== ENCOUNTER → 2025-06-09 | Outpatient (REF) | payer BC ==
[2025-06-09 19:19] LABS: ALT/SGPT 36 U/L (7.0-40); AST/SGOT 21 U/L (<34); CALCIUM LEVEL 8.6 MG/DL (8.5-10.1); CARBON DIOXIDE LEVEL 26 MMOL/L (20-31); CHLORIDE LEVEL 101 MMOL/L (98-107); CHOLESTEROL LEVEL 177 MG/DL (<200); CHOLESTEROL RISK RATIO 3.68 (<5); CREATININE FOR GFR 1.01 MG/DL (0.70-1.30); GLOMERULAR FILTRATION RATE > 90.0 (>60); LDL CHOLESTEROL 108.4 MG/DL (<100); NON-HDL-C 129.0 MG/DL; POTASSIUM SERUM 4.3 MMOL/L (3.5-5.1); SODIUM LEVEL 139 MMOL/L (136-145); TRIGLYCERIDES LEVEL 103 MG/DL (<150)
[2025-06-09 20:04] LABS: ESTIMATED AVERAGE GLUCOSE 140.0 MG/DL (60-110)
== END ==
LOC: M LAB REF 17:51
PROVIDERS: ATTEND Physician Assistant
DX: E11.319 Type 2 diabetes mellitus with unspecified diabetic retinopathy without macular edema (principal); E78.2 Mixed hyperlipidemia

== ENCOUNTER → 2025-06-25 | Outpatient (CLI) | payer BC ==
[~2025-06-25] MED LIST changes: +ISOVUE-370 76% 100 ML VIAL As Ordered ONE; -VITA100T14 PO; +VITA100T69 PO
== END ==
LOC: M RAD 16:41
PROVIDERS: ATTEND Nurse Practitioner Family
DX: C19 Malignant neoplasm of rectosigmoid junction (principal)
CPT/HCPCS: 36415; 71260; 74177; 82378; Q9967

== ENCOUNTER → 2025-06-25 | Outpatient (CLI) | payer BC ==
[~2025-06-25] MED LIST changes: -ISOVUE-370 76% 100 ML VIAL As Ordered ONE
== END ==
LOC: M LAB 16:51
PROVIDERS: ATTEND Nurse Practitioner Family
DX: C19 Malignant neoplasm of rectosigmoid junction (principal)